=== PATIENT | female | born 1945 | race Caucasian/White ===

== ENCOUNTER → 2016-05-15 | Outpatient (CLI) | payer MEDICARE ==
--- NOTE | 2016-05-15 12:41 | KCIC ---
PQRS STATEMENT One or more of the following individualized dose reduction techniques were utilized for this study: 1.Automated exposure control 2.Adjustment of the mA and/or kV according to patient size 3.Use of iterative reconstruction technique CT maxillofacial Indication: Reason For Study Reason: CHRONIC SINUSITIS / Spl. Instructions: / History: Sinus drainage Technique: multiple contiguous axial images were obtained through the facial bones. Coronal and sagittal reformations were created. Findings:Soft tissues are within normal limits. No facial fractures are identified. There are postsurgical changes of a medial antrectomy on the right. There has also been resection of the middle and inferior turbinates on the right. Minimal mucoperiosteal thickening is noted in the right maxillary sinus. Frontal sinuses are aplastic. The left ostiomeatal unit is patent. Temporomandibular joints are intact. The globes and orbits are within normal limits. Parapharyngeal soft tissues are within normal limits. Impression: - Postsurgical changes of a right medial antrectomy and right turbinectomy. There is minimal mucoperiosteal thickening of the right maxillary sinus but no fluid levels are identified. Electronically signed by: Rick Soto (May 15, 2016 12:40:02)
== END | disposition home or self-care (01) ==
LOC: KCIC CT 11:57
PROVIDERS: ATTEND Otolaryngology
DX: J32.9 Chronic sinusitis, unspecified (principal)
CPT/HCPCS: 70486

== ENCOUNTER → 2017-02-20 | Outpatient (CLI) | payer BC ==
--- NOTE | 2017-02-20 12:41 | KCIC ---
Single view chest and left rib series 02/20/2017 CLINICAL INDICATION: Left mid lateral pain marked with a BB. Fall. COMPARISON: None. FINDINGS: Cardiac and mediastinal silhouettes are unremarkable. There is a calcified granuloma in the mid left lung. Bilateral axillary surgical clips are noted. No pleural effusion, pneumothorax or focal consolidation. There is an irregular sclerotic structure of the proximal left humerus. No evidence of acute displaced left rib fracture identified. IMPRESSION: 1. Small, irregular sclerotic lesion of the proximal left humerus, may represent a chondroid series lesion versus enostosis bone infarct. Dedicated left humerus radiographs are recommended for further evaluation. 2. No acute cardiopulmonary abnormality. 3. No evidence of acute displaced left rib fracture. Electronically signed by: Rodo Pool MD (02/20/2017 12:38 PM) [id number]
== END | disposition home or self-care (01) ==
LOC: KCIC 10:53
PROVIDERS: ATTEND Family Medicine
DX: R07.81 Pleurodynia (principal); R91.8 Other nonspecific abnormal finding of lung field; W10.9XXA Fall (on) (from) unspecified stairs and steps, initial encounter
CPT/HCPCS: 71101

== ENCOUNTER 2017-12-26 09:43 | Emergency (ER) | payer BC ==
[~2017-12-26] VITALS: Ht 170.2 cm; Wt 75.7 kg
[2017-12-26 10:05] VITALS: BP 167/76
[2017-12-26] MEDS ORDERED: LIDOCAINE WITH 8.4% SOD BICARB 3 ML DISP.SYRIN. INJ ONE (10:30)
[2017-12-26] MEDS ORDERED: LIDOCAINE 1% PF 2 ML VIAL. INJ ONE (10:30)
[2017-12-26] MEDS ORDERED: cefTRIAXone IM 1 GM VIAL IM ONE (10:30)
[2017-12-26] MEDS ORDERED: CLINDAMYCIN HCL 150 MG CAPSULE. PO ONE (10:45)
[2017-12-26] MEDS ORDERED: CLIN150C14 PO (11:20)
--- NOTE | 2017-12-26 11:20 | PHYS DOC ---
Past Medical History Past Medical History: Cancer, High Cholesterol, Hypertension, Other Additional Past Medical Histor: RT CHRONIC KNEE PAIN, BREAST CANCER Past Surgical History: , Hysterectomy, Other Additional Past Surgical Histo: TRAM FLAP, BILATERAL MASECTOMY, RECONSTRUCTION OF TRAM FLAP, Alcohol Use: Occasionally Additional Information: GLASS A WINE A DAY Drug Use: None Adult General Chief Complaint Chief Complaint: ABSCESS HPI HPI Patient is a 72 year old female with history of high cholesterol, hypertension , who presents with right index finger infection, she states she developed swelling to the finger a couple weeks ago, she states this morning she woke up and noted redness around the nail bed as well as redness streaking into her right upper arm. Patient denies any fever. Review of Systems Review of Systems Constitutional: Denies fever or chills [] Eyes: Denies change in visual acuity, redness, or eye pain [] HENT: Denies nasal congestion or sore throat [] Respiratory: Denies cough or shortness of breath [] Cardiovascular: No additional information not addressed in HPI [] GI: Denies abdominal pain, nausea, vomiting, bloody stools or diarrhea [] : Denies dysuria or hematuria [] Musculoskeletal: Denies back pain or joint pain [] Integument: Right index finger infection with streaking Neurologic: Denies headache, focal weakness or sensory changes [] All other systems were reviewed and found to be within normal limits, except as documented in this note. Current Medications Current Medications Current Medications Medications (Trade) Dose Ordered Sig/Erik Start Time Stop Time Status Last Admin Dose Admin Ceftriaxone Sodium (Rocephin Im) 1 gm 1X ONCE 12/26/17 10:30 12/26/17 10:31 UNV Clindamycin HCl (Cleocin) 450 mg 1X ONCE 12/26/17 10:45 12/26/17 10:46 DC 12/26/17 10:51 450 MG Lidocaine HCl (Xylocaine-Mpf 1% 2ml Vial) 2 ml 1X ONCE 12/26/17 10:30 12/26/17 10:31 Cancel Lidocaine/Sodium Bicarbonate (Buffered Lidocaine 1%) 3 ml 1X ONCE 12/26/17 10:30 12/26/17 10:38 DC 12/26/17 10:51 3 ML Allergies Allergies Allergies Coded Allergies Type Severity Reaction Last Updated Verified Cephalosporins Allergy Intermediate BLISTERS 12/26/17 Yes Penicillins Allergy Intermediate "HUGE HIVES" SWELLING 12/26/17 Yes adhesive tape Allergy Intermediate BLISTERS 12/26/17 Yes bacitracin Allergy Intermediate BLISTERS 12/26/17 Yes polymyxin B Allergy Intermediate BLISTERS 12/26/17 Yes codeine Adverse Reaction Intermediate PUKING 12/26/17 Yes Uncoded Allergies Type Severity Reaction Last Updated Verified CATGUT Allergy Intermediate REJECT 12/26/17 Physical Exam Physical Exam Constitutional: Well developed, well nourished, no acute distress, non-toxic appearance. [] HENT: Normocephalic, atraumatic, bilateral external ears normal, oropharynx moist, no oral exudates, nose normal. [] Eyes: PERRLA, EOMI, conjunctiva normal, no discharge. [] Neck: Normal range of motion, no tenderness, supple, no stridor. [] Cardiovascular:Heart rate regular rhythm, no murmur [] Lungs & Thorax: Bilateral breath sounds clear to auscultation [] Abdomen: Bowel sounds normal, soft, no tenderness, no masses, no pulsatile masses. [] Skin: Warm, dry, the nail bed of the right index finger with mild swelling and cellulitis, there is a streak from this area into the forearm worse on the biceps. Neurovascular exam. +2 right radial pulse. Cap refill less than 2 seconds the right index finger. Back: No tenderness, no CVA tenderness. [] Extremities: No tenderness, no cyanosis, no clubbing, ROM intact, no edema. [] Neurologic: Alert and oriented X 3, normal motor function, normal sensory function, no focal deficits noted. [] Psychologic: Affect normal, judgement normal, mood normal. [] Current Patient Data Vital Signs Vital Signs Date Time Temp Pulse Resp B/P (MAP) Pulse Ox O2 Delivery O2 Flow Rate FiO2 12/26/17 10:05 97.9 52 14 167/76 (106) 98 Room Air 97.9 EKG EKG [] Radiology/Procedures Radiology/Procedures Indication: Paronychia right index finger Procedure: The patient was positioned appropriately. Local anesthesia was 1% buffered lidocaine. An incision was then made over the apex of the lesion with an 11 blade and small amount of yellow bloody material was expressed. The drainage cavity was irrigated and covered with sterile gauze. The patients tetanus status updated as needed. The patient tolerated the procedure well. Complications: none.[] Course & Med Decision Making Course & Med Decision Making Pertinent Labs and Imaging studies reviewed. (See chart for details) Patient has paronychia of the right index finger with streaking into her right upper extremity. The paronychia was drained successfully in the emergency room by me. Tetanus is up-to-date. She was given clindamycin in the ED and discharged with the same. She is allergic to a lot of antibiotics. She was instructed to continue soaking the finger. Follow-up with her own PCP in 1-2 weeks. Instructed to return to the ED at any point symptoms worsen. Dragon Disclaimer Dragon Disclaimer This electronic medical record was generated, in whole or in part, using a voice recognition dictation system. Departure Departure Impression: Primary Impression: Paronychia of right index finger Additional Impression: Cellulitis of upper extremity Disposition: 01 HOME, SELF-CARE Condition: STABLE Referrals: Kenisha MANDUJANO MD (PCP) Follow up in 1-2 weeks Patient Instructions: Cellulitis, [id number], Paronychia, [id number] Additional Instructions: You were seen with paronychia/finger infection and cellulitis/the streaking/ redness. Please take the prescribed antibiotics until completed. Continue soaking the index finger. Follow-up with your own doctor in the next 7 days. Please come back to the emergency room at any point symptoms worsen. Scripts Clindamycin Hcl (CLINDAMYCIN HCL) 150 Mg Capsule 3 CAP PO TID, #90 CAP Prov: MINH TRIPP APRN 12/26/17 Problem Qualifiers Additional Impression: Cellulitis of upper extremity Laterality: right Qualified Codes: L03.113 - Cellulitis of right upper limb MINH TRIPP APRN Dec 26, 2017 11:20
[2017-12-27] MEDS ORDERED: GABA-586 PO ×2 (11:57)
[2017-12-27] MEDS ORDERED: EZET10TA18 PO (11:57)
[2017-12-27] MEDS ORDERED: METO-269 PO (11:57)
== END 2017-12-26 11:40 | disposition home or self-care (01) ==
LOC: ER 09:43
DX: L03.011 Cellulitis of right finger (principal); I10 Essential (primary) hypertension; E78.00 Pure hypercholesterolemia, unspecified; G89.29 Other chronic pain; Z88.0 Allergy status to penicillin; Z88.1 Allergy status to other antibiotic agents; Z88.8 Allergy status to other drugs, medicaments and biological substances; Z88.5 Allergy status to narcotic agent
CPT/HCPCS: 10060; 99283-25

== ENCOUNTER 2017-12-27 09:22 | Inpatient (IN) | payer BC ==
[~2017-12-27] VITALS: Ht 170.2 cm; Wt 74.4 kg
[~2017-12-27 09:22] MED LIST: CLIN150C14 PO
[2017-12-27] MEDS ORDERED: VANCOMYCIN PER PHARMACY MC PRN (10:00)
[2017-12-27] MEDS ORDERED: IV NORMAL SALINE 1000ML BAG 1,000 ML IV ONE ×2 (10:00→10:45)
[2017-12-27] MEDS ORDERED: VANCOMYCIN 1.75 GM in IV NORMAL SALINE 500ML BAG 500 ML IV ONE (10:15)
[2017-12-27 10:19] LABS: CALCIUM 9.2 mg/dL (8.5-10.1); CREATININE 0.7 mg/dL (0.6-1.0); GFR 82.5; POTASSIUM 4.3 mmol/L (3.5-5.1)
[2017-12-27] MEDS ORDERED: SULFAMETH/TRIMETH 20 ML in IV DEXTROSE 5% 500 ML IV ONE (10:30)
[2017-12-27 10:37] LABS: BASO # 0.1 x10^3/uL (0.0-0.2); BASO % 1 % (0-3); EOS # 0.4 x10^3/uL (0.0-0.7); EOS % 5 % (0-3); HEMATOCRIT 39.6 % (36.0-47.0); HEMOGLOBIN 13.3 g/dL (12.0-15.5); LYMPH # 2.6 x10^3/uL (1.0-4.8); LYMPH % 38 % (24-48); MEAN CORPUSCULAR HEMOGLOBIN 33 pg (25-35); MEAN CORPUSCULAR HGB CONC 34 g/dL (31-37); MEAN CORPUSCULAR VOLUME 98 fL (79-100); MONO # 0.5 x10^3/uL (0.0-1.1); MONO % 8 % (0-9); NEUT # 3.4 x10^3uL (1.8-7.7); NEUT % 48 % (31-73); PLATELET COUNT 283 x10^3/uL (140-400); RED BLOOD COUNT 4.05 x10^6/uL (3.50-5.40); RED CELL DISTRIBUTION WIDTH 13.9 % (11.5-14.5); WHITE BLOOD COUNT 6.9 x10^3/uL (4.0-11.0)
[2017-12-27] MEDS ORDERED: ACETAMINOPHEN 325 MG TABLET. PO PRN (10:45)
[2017-12-27] MEDS ORDERED: ONDANSETRON PF 4 MG/2 ML VIAL. IV PRN (10:45)
[2017-12-27 10:50] VITALS: BP 144/74
--- NOTE | 2017-12-27 11:11 | PHYS DOC ---
Past Medical History Past Medical History: Cancer, High Cholesterol, Hypertension, Other Additional Past Medical Histor: RT CHRONIC KNEE PAIN, BREAST CANCER Past Surgical History: , Hysterectomy, Other Additional Past Surgical Histo: TRAM FLAP, BILATERAL MASECTOMY, RECONSTRUCTION OF TRAM FLAP, Alcohol Use: Occasionally Drug Use: None Adult General Chief Complaint Chief Complaint: UPPER EXTREMITY PAIN HPI HPI Patient is a 72 year old female with history of high cholesterol, hypertension , who presents today complaining of worsening cellulitis to the right upper extremity. Patient was seen yesterday in the ED by me with paronychia infection to the right index finger which i drained. She presents today because the redness has gotten worse with streaking all the way to the right upper extremity. Patient was discharged yesterday with clindamycin which she started taking yesterday this morning her symptoms were worse. Patient denies any fever. Denies any nausea vomiting. PCP Dr. Mandujano Review of Systems Review of Systems Constitutional: Denies fever or chills [] Eyes: Denies change in visual acuity, redness, or eye pain [] HENT: Denies nasal congestion or sore throat [] Respiratory: Denies cough or shortness of breath [] Cardiovascular: No additional information not addressed in HPI [] GI: Denies abdominal pain, nausea, vomiting, bloody stools or diarrhea [] : Denies dysuria or hematuria [] Musculoskeletal: Denies back pain or joint pain [] Integument: Reports right index finger infection with cellulitis to the right upper extremity Neurologic: Denies headache, focal weakness or sensory changes [] All other systems were reviewed and found to be within normal limits, except as documented in this note. Current Medications Current Medications Current Medications Medications (Trade) Dose Ordered Sig/Erik Start Time Stop Time Status Last Admin Dose Admin Sodium Chloride 1,000 ml @ 1,000 mls/hr 1X ONCE 12/27/17 10:00 12/27/17 10:59 DC 12/27/17 10:18 1,000 MLS/HR Vancomycin HCl (Vanco Per Pharmacy) 1 each PRN DAILY PRN 12/27/17 10:00 Allergies Allergies Allergies Coded Allergies Type Severity Reaction Last Updated Verified Cephalosporins Allergy Intermediate BLISTERS 12/26/17 Yes Penicillins Allergy Intermediate "HUGE HIVES" SWELLING 12/26/17 Yes adhesive tape Allergy Intermediate BLISTERS 12/26/17 Yes bacitracin Allergy Intermediate BLISTERS 12/26/17 Yes polymyxin B Allergy Intermediate BLISTERS 12/26/17 Yes codeine Adverse Reaction Intermediate PUKING 12/26/17 Yes Uncoded Allergies Type Severity Reaction Last Updated Verified CATGUT Allergy Intermediate REJECT 12/26/17 Physical Exam Physical Exam Constitutional: Well developed, well nourished, no acute distress, non-toxic appearance. [] HENT: Normocephalic, atraumatic, bilateral external ears normal, oropharynx moist, no oral exudates, nose normal. [] Eyes: PERRLA, EOMI, conjunctiva normal, no discharge. [] Neck: Normal range of motion, no tenderness, supple, no stridor. [] Cardiovascular:Heart rate regular rhythm, no murmur [] Lungs & Thorax: Bilateral breath sounds clear to auscultation [] Abdomen: Bowel sounds normal, soft, no tenderness, no masses, no pulsatile masses. [] Skin: Right index finger nail bed with mild swelling and erythema/cellulitis around the nail bed. There is streaking from the right index finger all the way into the right upper extremity. There large area of cellulitis on the right biceps. Neurovascular exam is intact to the right upper extremity. Back: No tenderness, no CVA tenderness. [] Extremities: No tenderness, no cyanosis, no clubbing, ROM intact, no edema. [] Neurologic: Alert and oriented X 3, normal motor function, normal sensory function, no focal deficits noted. [] Psychologic: Affect normal, judgement normal, mood normal. [] Current Patient Data Vital Signs Vital Signs Date Time Temp Pulse Resp B/P (MAP) Pulse Ox O2 Delivery O2 Flow Rate FiO2 12/27/17 09:46 97.6 57 18 166/75 (105) 99 Room Air 97.6 Lab Values Laboratory Tests Test 12/27/17 09:55 Sodium Level 138 mmol/L (136-145) Potassium Level 4.3 mmol/L (3.5-5.1) Chloride Level 103 mmol/L (98-107) Carbon Dioxide Level 28 mmol/L (21-32) Anion Gap 7 (6-14) Blood Urea Nitrogen 17 mg/dL (7-20) Creatinine 0.7 mg/dL (0.6-1.0) Estimated GFR (Cockcroft-Gault) 82.5 Glucose Level 88 mg/dL (70-99) Calcium Level 9.2 mg/dL (8.5-10.1) C-Reactive Protein, Quantitative 3.0 mg/L (0-3.3) Laboratory Tests 12/27/17 09:55 EKG EKG [] Radiology/Procedures Radiology/Procedures [] Course & Med Decision Making Course & Med Decision Making Pertinent Labs and Imaging studies reviewed. (See chart for details) This is a 72-year-old female patient presenting to the ED today with a worsening paronychia infection with cellulitis. Patient was seen in the ED yesterday. I&D was performed paronychia. This morning her symptoms were worse. She was on clindamycin since yesterday. No improvement of symptoms. Her tetanus is up-to-date. Patient was started on Bactrim IV and vancomycin pharmacy to dose. She is allergic to other antibiotics including PCN and cephalosporins. [address] Mandujano who accepted patient for admission. I&D consult placed. Boone Disclaimer Boone Disclaimer This electronic medical record was generated, in whole or in part, using a voice recognition dictation system. Departure Departure Impression: Primary Impression: Cellulitis of upper extremity Additional Impression: Paronychia of right index finger Disposition: ADMITTED INPATIENT Condition: STABLE Referrals: Kenisha MANDUJANO MD (PCP) Problem Qualifiers Primary Impression: Cellulitis of upper extremity Laterality: right Qualified Codes: L03.113 - Cellulitis of right upper limb JOSEEMINH BURGESS Dec 27, 2017 11:11
[2017-12-27] MEDS ORDERED: HYDROcodone/APAP 5/325MG 1 TAB TABLET PO PRN (11:30)
--- NOTE | 2017-12-27 11:50 | PDOC ---
Infectious Disease Note Vital Sign Vital Signs Vital Signs Date Time Temp Pulse Resp B/P (MAP) Pulse Ox O2 Delivery O2 Flow Rate FiO2 12/27/17 09:46 97.6 57 18 166/75 (105) 99 Room Air 97.6 Labs Lab Laboratory Tests Test 12/27/17 09:55 12/27/17 10:25 Sodium Level 138 mmol/L (136-145) Potassium Level 4.3 mmol/L (3.5-5.1) Chloride Level 103 mmol/L (98-107) Carbon Dioxide Level 28 mmol/L (21-32) Anion Gap 7 (6-14) Blood Urea Nitrogen 17 mg/dL (7-20) Creatinine 0.7 mg/dL (0.6-1.0) Estimated GFR (Cockcroft-Gault) 82.5 Glucose Level 88 mg/dL (70-99) Calcium Level 9.2 mg/dL (8.5-10.1) C-Reactive Protein, Quantitative 3.0 mg/L (0-3.3) White Blood Count 6.9 x10^3/uL (4.0-11.0) Red Blood Count 4.05 x10^6/uL (3.50-5.40) Hemoglobin 13.3 g/dL (12.0-15.5) Hematocrit 39.6 % (36.0-47.0) Mean Corpuscular Volume 98 fL (79-100) Mean Corpuscular Hemoglobin 33 pg (25-35) Mean Corpuscular Hemoglobin Concent 34 g/dL (31-37) Red Cell Distribution Width 13.9 % (11.5-14.5) Platelet Count 283 x10^3/uL (140-400) Neutrophils (%) (Auto) 48 % (31-73) Lymphocytes (%) (Auto) 38 % (24-48) Monocytes (%) (Auto) 8 % (0-9) Eosinophils (%) (Auto) 5 % (0-3) Basophils (%) (Auto) 1 % (0-3) Neutrophils # (Auto) 3.4 x10^3uL (1.8-7.7) Lymphocytes # (Auto) 2.6 x10^3/uL (1.0-4.8) Monocytes # (Auto) 0.5 x10^3/uL (0.0-1.1) Eosinophils # (Auto) 0.4 x10^3/uL (0.0-0.7) Basophils # (Auto) 0.1 x10^3/uL (0.0-0.2) Lactic Acid Level 1.1 mmol/L (0.4-2.0) Objective Assessment Rt index finger paronychia Rt hand and forearm lymphangitic spread HTN Multiple med allergy Plan Plan of Care iv clindamycin check cultures DARCI BERRY MD Dec 27, 2017 11:49
[2017-12-27] MEDS ORDERED: METO-269 PO (11:57)
[2017-12-27] MEDS ORDERED: GABA-586 PO ×2 (11:57)
[2017-12-27] MEDS ORDERED: EZET10TA18 PO (11:57)
[2017-12-27] MEDS: GABAPENTIN 300 MG CAPSULE. PO SCH ×2 (12:31→21:25)
--- NOTE | 2017-12-27 12:49 | PDOC1 ---
History and Physical Date of Admission Date of Admission 12/27/17 Identification/Chief Complaint Chief Complaint red streak up arm Source Source: Patient History of Present Illness History of Present Illness She thinks she had a papercut of her finger that got infected and presented to ER and had it lanced and was started on po antibiotics and now she has a red streak up her arm. 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 Past Medical History Cardiovascular: HTN, Hyperlipidemia Pulmonary: Other (CINDY treated with uvuloplasty) GI: Other (colon polyps) Hepatobiliary: No pertinent hx Psych: No pertinent hx Rheumatologic: Other (Lyme Disease) Infectious disease: No pertinent hx ENT: No pertinent hx Renal/: No pertinent hx Endocrine: No pertinent hx Dermatology: No pertinent hx Past Surgical History Past Surgical History: , Mastectomy, Tonsillectomy, Other (breast implants) Family History Family History: Hypertension Social History Smoke: Quit (> 25 yrs ago) Current Problem List Problem List Problems Medical Problems: (1) Cellulitis of upper extremity Status: Acute (2) Paronychia of right index finger Status: Acute Current Medications Current Medications Current Medications Medications (Trade) Dose Ordered Sig/Erik Start Time Stop Time Status Last Admin Dose Admin Acetaminophen (Tylenol) 650 mg PRN Q4HRS PRN 12/27/17 10:45 12/28/17 10:44 Acetaminophen/ Hydrocodone Bitart (Lortab 5/325) 1 tab PRN Q6HRS PRN 12/27/17 11:30 12/27/17 11:46 1 TAB Clindamycin Phosphate 50 ml @ 100 mls/hr Q8HRS 12/27/17 13:00 EZETIMIBE (Zetia) 10 mg QHS 12/27/17 21:00 Gabapentin (Neurontin) 600 mg QHS 12/27/17 21:00 Metoprolol Succinate (Toprol Xl) 50 mg DAILY 12/27/17 13:00 Ondansetron HCl (Zofran) 4 mg PRN Q8HRS PRN 12/27/17 10:45 12/28/17 10:44 Sodium Chloride 1,000 ml @ 75 mls/hr 1X ONCE 12/27/17 10:45 12/28/17 00:04 12/27/17 11:08 75 MLS/HR Trimethoprim/ Sulfamethoxazole 20 ml/Dextrose 520 ml @ 346.667 mls/hr 1X ONCE 12/27/17 10:30 12/27/17 11:58 DC 12/27/17 10:59 346.667 MLS/HR Vancomycin HCl (Vanco Per Pharmacy) 1 each PRN DAILY PRN 12/27/17 10:00 12/27/17 11:51 DC Vancomycin HCl 1.75 gm/Sodium Chloride 500 ml @ 250 mls/hr 1X ONCE 12/27/17 10:15 12/27/17 11:58 DC Allergies Allergies Allergies Coded Allergies Type Severity Reaction Last Updated Verified Cephalosporins Allergy Intermediate BLISTERS 12/26/17 Yes Penicillins Allergy Intermediate "HUGE HIVES" SWELLING 12/26/17 Yes adhesive tape Allergy Intermediate BLISTERS 12/26/17 Yes bacitracin Allergy Intermediate BLISTERS 12/26/17 Yes polymyxin B Allergy Intermediate BLISTERS 12/26/17 Yes tetracycline Allergy Intermediate Itching 12/27/17 Yes codeine Adverse Reaction Intermediate PUKING 12/26/17 Yes Uncoded Allergies Type Severity Reaction Last Updated Verified CATGUT Allergy Intermediate REJECT 12/26/17 ROS Review of System CONSTITUTIONAL: No fever or chills EYES: No recent changes SKIN: No rash or itching CARDIOVASCULAR: No chest pain, syncope, palpitations, or edema RESPIRATORY: No SOB or cough GASTROINTESTINAL: No nausea, vomiting or abdominal pain NEUROLOGICAL: No headaches or weakness ENDOCRINE: No cold or heat intolerance GENITOURINARY: No urgency or frequency of urination MUSCULOSKELETAL: No back pain or joint pain LYMPHATICS: No enlarged lymph nodes PSYCHIATRIC: No anxiety or depression Physical Exam Physical Exam GEN.: No apparent distress. Alert and oriented. HEENT: Head is normocephalic, atraumatic NECK: Supple. LUNGS: Clear to auscultation. HEART: RRR, S1, S2 present. Peripheral pulses intact ABDOMEN: Soft, nontender. Positive bowel sounds. EXTREMITIES: Without any cyanosis, red lymphangitic streak up right inner arm from index finger with soft tissue swelling around cuticle. NEUROLOGIC: Normal speech, normal tone PSYCHIATRIC: Normal affect, normal mood. SKIN: No ulcerations Vitals Vitals Vital Signs Date Time Temp Pulse Resp B/P (MAP) Pulse Ox O2 Delivery O2 Flow Rate FiO2 12/27/17 11:46 Room Air 12/27/17 09:46 97.6 57 18 166/75 (105) 99 97.6 Labs Labs Laboratory Tests Test 12/27/17 09:55 12/27/17 10:25 Sodium Level 138 mmol/L (136-145) Potassium Level 4.3 mmol/L (3.5-5.1) Chloride Level 103 mmol/L (98-107) Carbon Dioxide Level 28 mmol/L (21-32) Anion Gap 7 (6-14) Blood Urea Nitrogen 17 mg/dL (7-20) Creatinine 0.7 mg/dL (0.6-1.0) Estimated GFR (Cockcroft-Gault) 82.5 Glucose Level 88 mg/dL (70-99) Calcium Level 9.2 mg/dL (8.5-10.1) C-Reactive Protein, Quantitative 3.0 mg/L (0-3.3) White Blood Count 6.9 x10^3/uL (4.0-11.0) Red Blood Count 4.05 x10^6/uL (3.50-5.40) Hemoglobin 13.3 g/dL (12.0-15.5) Hematocrit 39.6 % (36.0-47.0) Mean Corpuscular Volume 98 fL (79-100) Mean Corpuscular Hemoglobin 33 pg (25-35) Mean Corpuscular Hemoglobin Concent 34 g/dL (31-37) Red Cell Distribution Width 13.9 % (11.5-14.5) Platelet Count 283 x10^3/uL (140-400) Neutrophils (%) (Auto) 48 % (31-73) Lymphocytes (%) (Auto) 38 % (24-48) Monocytes (%) (Auto) 8 % (0-9) Eosinophils (%) (Auto) 5 % (0-3) Basophils (%) (Auto) 1 % (0-3) Neutrophils # (Auto) 3.4 x10^3uL (1.8-7.7) Lymphocytes # (Auto) 2.6 x10^3/uL (1.0-4.8) Monocytes # (Auto) 0.5 x10^3/uL (0.0-1.1) Eosinophils # (Auto) 0.4 x10^3/uL (0.0-0.7) Basophils # (Auto) 0.1 x10^3/uL (0.0-0.2) Lactic Acid Level 1.1 mmol/L (0.4-2.0) Laboratory Tests Test 12/27/17 09:55 12/27/17 10:25 Sodium Level 138 mmol/L (136-145) Potassium Level 4.3 mmol/L (3.5-5.1) Chloride Level 103 mmol/L (98-107) Carbon Dioxide Level 28 mmol/L (21-32) Anion Gap 7 (6-14) Blood Urea Nitrogen 17 mg/dL (7-20) Creatinine 0.7 mg/dL (0.6-1.0) Estimated GFR (Cockcroft-Gault) 82.5 Glucose Level 88 mg/dL (70-99) Calcium Level 9.2 mg/dL (8.5-10.1) C-Reactive Protein, Quantitative 3.0 mg/L (0-3.3) White Blood Count 6.9 x10^3/uL (4.0-11.0) Red Blood Count 4.05 x10^6/uL (3.50-5.40) Hemoglobin 13.3 g/dL (12.0-15.5) Hematocrit 39.6 % (36.0-47.0) Mean Corpuscular Volume 98 fL (79-100) Mean Corpuscular Hemoglobin 33 pg (25-35) Mean Corpuscular Hemoglobin Concent 34 g/dL (31-37) Red Cell Distribution Width 13.9 % (11.5-14.5) Platelet Count 283 x10^3/uL (140-400) Neutrophils (%) (Auto) 48 % (31-73) Lymphocytes (%) (Auto) 38 % (24-48) Monocytes (%) (Auto) 8 % (0-9) Eosinophils (%) (Auto) 5 % (0-3) Basophils (%) (Auto) 1 % (0-3) Neutrophils # (Auto) 3.4 x10^3uL (1.8-7.7) Lymphocytes # (Auto) 2.6 x10^3/uL (1.0-4.8) Monocytes # (Auto) 0.5 x10^3/uL (0.0-1.1) Eosinophils # (Auto) 0.4 x10^3/uL (0.0-0.7) Basophils # (Auto) 0.1 x10^3/uL (0.0-0.2) Lactic Acid Level 1.1 mmol/L (0.4-2.0) VTE Prophylaxis Ordered VTE Prophylaxis Devices: No VTE Pharmacological Prophylaxi: No Assessment/Plan Assessment/Plan Rt index finger paronychia - lanced yesterday in ER - no culture as no purulent material found, it was appropriately cleaned with betadine prior to lancing attempt and she soaked it in Epsom salt later last padmini after getting home Rt hand and forearm lymphangitic spread - admit for IV antibiotics and ID consult HTN - continue home meds HLP- continue home meds Kenisha MANDUJANO MD Dec 27, 2017 12:49
[2017-12-27] MEDS: CLINDAMYCIN 600MG PREMIX 50 ML IV SCH ×2 (13:00→21:25)
[2017-12-27] MEDS: METOPROLOL SUCC 24HR ER 50 MG TAB.ER.24H. PO SCH (13:01)
--- NOTE | 2017-12-27 17:14 | RAD ---
Right index finger, 3 views, 12/27/2017: HISTORY: Swelling, infection No fracture or destructive bony lesion is seen. There is minimal degenerative change at the DIP joint. Soft tissue swelling is evident distally. IMPRESSION: No acute bony abnormality is detected. Electronically signed by: José Miguel Pagan MD (12/27/2017 5:11 PM) [facility]
[2017-12-27 19:20] VITALS: BP 132/68
[2017-12-27] MEDS: LACTOBACILLUS RHAMNOSUS GG 1 CAPSULE. PO SCH (21:25)
[2017-12-27] MEDS: EZETIMIBE 10 MG TABLET. PO SCH (21:25)
[2017-12-27] MEDS ORDERED: SULFAMETH/TRIMETH 20 ML in IV DEXTROSE 5% 500 ML IV SCH (22:00)
[2017-12-27 23:03] VITALS: BP 142/79
[2017-12-28 03:29] VITALS: BP 130/70
[2017-12-28 04:35] LABS: BASO % 1 % (0-3); EOS # 0.4 x10^3/uL (0.0-0.7); EOS % 7 % (0-3); HEMATOCRIT 37.7 % (36.0-47.0); HEMOGLOBIN 12.9 g/dL (12.0-15.5); LYMPH # 2.5 x10^3/uL (1.0-4.8); LYMPH % 40 % (24-48); MEAN CORPUSCULAR HEMOGLOBIN 34 pg (25-35); MEAN CORPUSCULAR HGB CONC 34 g/dL (31-37); MEAN CORPUSCULAR VOLUME 98 fL (79-100); MONO # 0.6 x10^3/uL (0.0-1.1); MONO % 9 % (0-9); NEUT # 2.7 x10^3uL (1.8-7.7); NEUT % 44 % (31-73); PLATELET COUNT 285 x10^3/uL (140-400); RED BLOOD COUNT 3.85 x10^6/uL (3.50-5.40); RED CELL DISTRIBUTION WIDTH 13.9 % (11.5-14.5); WHITE BLOOD COUNT 6.2 x10^3/uL (4.0-11.0)
[2017-12-28 04:42] LABS: CALCIUM 8.5 mg/dL (8.5-10.1); CREATININE 0.8 mg/dL (0.6-1.0); GFR 70.7; POTASSIUM 4.3 mmol/L (3.5-5.1)
--- NOTE | 2017-12-28 05:51 | CONS ---
DATE OF CONSULTATION: 12/27/2017 REQUESTING PHYSICIAN: Dr. Wells. REASON FOR CONSULTATION: Right index finger paronychia with lymphangitic spread into the upper extremity. HISTORY OF PRESENT ILLNESS: This is a 72-year-old female who started having pain at the right index finger on the lateral side. This started about couple of days ago. The patient was seen in the ER. Lancing was done and put on Bactrim and she got worse. She came back. The patient had lancing done. She says, evidently only blood came out and no culture was taken. Now, the patient has started having redness, streaking from the hand into the forearm and into the upper arm. The patient denies any fever, does have slight nausea, but denies any vomiting. Denies any chest pain, shortness of breath, abdominal pain, urinary symptoms or bowel symptoms. PAST MEDICAL HISTORY: Positive for hypertension, hyperlipidemia. She has had breast cancer, bilateral mastectomy done and TRAM flap done. SOCIAL HISTORY: Negative for smoking. Occasional alcohol use. No drug use. ALLERGIES: SHE IS LISTED ALLERGIC TO CEPHALOSPORINS, PENICILLIN, AND POLYMYXIN. REVIEW OF SYSTEMS: As per HPI. All other systems reviewed are negative. PHYSICAL EXAMINATION: GENERAL: Alert, oriented female, not in distress. VITAL SIGNS: Stable, afebrile. HEENT: NAD. NECK: Supple. No JVP, no lymphadenopathy. LUNGS: Clear. HEART: S1, S2 regular. ABDOMEN: Benign. EXTREMITIES: No edema or cyanosis. SKIN: Unremarkable except the right index finger. The patient does have paronychia with tenderness at the nail into the sides of the nails. There is no pus pointing or there is no drainage right now, but clear cut lymphangitic spread into the hand, forearm, and upper arm. NEUROLOGIC: Intact. LABORATORY DATA: White count is normal. BUN and creatinine is normal. IMPRESSION: 1. Paronychia, right index finger. 2. Lymphangitic spread into the right hand, forearm and upper arm. 3. Multiple medication allergy. 4. Hypertension. 5. Hyperlipidemia. RECOMMENDATIONS: Would use IV clindamycin. This is almost always strep the way it started, the way it is spreading. We will discontinue vancomycin, discontinue Bactrim. Supportive care. We will monitor and hopefully soon will be able to go home. Thank you very much, Dr. Wells, for giving me the opportunity to participate in this patient's care. DARCI BERRY MD DR: SHELIA/stephan JOB#: [id number] / [id number]
[2017-12-28] MEDS: CLINDAMYCIN 600MG PREMIX 50 ML IV SCH ×3 (06:32→23:09)
[2017-12-28 07:00] VITALS: BP 117/65
[2017-12-28] MEDS: GABAPENTIN 300 MG CAPSULE. PO SCH ×2 (09:00→20:12)
[2017-12-28] MEDS: METOPROLOL SUCC 24HR ER 50 MG TAB.ER.24H. PO SCH (09:00)
[2017-12-28] MEDS: LACTOBACILLUS RHAMNOSUS GG 1 CAPSULE. PO SCH ×2 (09:00→20:11)
[2017-12-28 11:00] VITALS: BP 133/66
--- NOTE | 2017-12-28 11:29 | PDOC ---
Infectious Disease Note Subjective Subjective feeling better, ROS ROS no n/v/d/fever redness improving Vital Sign Vital Signs Vital Signs Date Time Temp Pulse Resp B/P (MAP) Pulse Ox O2 Delivery O2 Flow Rate FiO2 12/28/17 07:56 Room Air 12/28/17 07:00 97.5 62 16 117/65 (82) 99 97.5 Physical Exam PHYSICAL EXAM GENERAL: Alert, oriented female, not in distress. VITAL SIGNS: Stable, afebrile. HEENT: NAD. NECK: Supple. No JVP, no lymphadenopathy. LUNGS: Clear. HEART: S1, S2 regular. ABDOMEN: Benign. EXTREMITIES: No edema or cyanosis. SKIN: Unremarkable except the right index finger. The patient does have paronychia with tenderness at the nail into the sides of the nails. There is no pus pointing or there is no drainage right now, but clear cut lymphangitic spread into the hand, forearm, and upper arm.,, redness improving NEUROLOGIC: Intact. Labs Lab Laboratory Tests Test 12/28/17 03:15 White Blood Count 6.2 x10^3/uL (4.0-11.0) Red Blood Count 3.85 x10^6/uL (3.50-5.40) Hemoglobin 12.9 g/dL (12.0-15.5) Hematocrit 37.7 % (36.0-47.0) Mean Corpuscular Volume 98 fL (79-100) Mean Corpuscular Hemoglobin 34 pg (25-35) Mean Corpuscular Hemoglobin Concent 34 g/dL (31-37) Red Cell Distribution Width 13.9 % (11.5-14.5) Platelet Count 285 x10^3/uL (140-400) Neutrophils (%) (Auto) 44 % (31-73) Lymphocytes (%) (Auto) 40 % (24-48) Monocytes (%) (Auto) 9 % (0-9) Eosinophils (%) (Auto) 7 % (0-3) Basophils (%) (Auto) 1 % (0-3) Neutrophils # (Auto) 2.7 x10^3uL (1.8-7.7) Lymphocytes # (Auto) 2.5 x10^3/uL (1.0-4.8) Monocytes # (Auto) 0.6 x10^3/uL (0.0-1.1) Eosinophils # (Auto) 0.4 x10^3/uL (0.0-0.7) Basophils # (Auto) 0.0 x10^3/uL (0.0-0.2) Sodium Level 142 mmol/L (136-145) Potassium Level 4.3 mmol/L (3.5-5.1) Chloride Level 107 mmol/L (98-107) Carbon Dioxide Level 26 mmol/L (21-32) Anion Gap 9 (6-14) Blood Urea Nitrogen 14 mg/dL (7-20) Creatinine 0.8 mg/dL (0.6-1.0) Estimated GFR (Cockcroft-Gault) 70.7 Glucose Level 88 mg/dL (70-99) Calcium Level 8.5 mg/dL (8.5-10.1) Micro Microbiology 12/27/17 Blood Culture - Preliminary, Resulted NO GROWTH AFTER 1 DAY Objective Assessment Rt index finger paronychia Rt hand and forearm lymphangitic spread HTN Multiple med allergy Plan Plan of Care iv clindamycin check cultures DARCI BERRY MD Dec 28, 2017 11:29
[2017-12-28 15:00] VITALS: BP 128/72
--- NOTE | 2017-12-28 17:04 | PDOC ---
PROGRESS NOTES Subjective Lymphangitis of right arm fading but she has some tenderness with palpation , cultures pending, no new symptoms except for metallic taste in mouth Objective Afebrile BP: [] General: NAD Heart: RRR Lungs: CTAB Abd: soft, ND, NT Ext: redness fading from right inner arm, index finger cuticle area improved Vital Signs Vital Signs Date Time Temp Pulse Resp B/P (MAP) Pulse Ox O2 Delivery O2 Flow Rate FiO2 12/28/17 15:00 97.9 67 16 128/72 (90) 97 Room Air 97.9 I & O Intake and Output 12/28/17 07:00 Intake Total 1240 ml Balance 1240 ml Intake Oral 720 ml IV Total 520 ml # Voids 9 Assessment and Plan Problems Medical Problems: (1) Cellulitis of upper extremity Status: Acute (2) Paronychia of right index finger Status: Acute Rt index finger paronychia - lanced 12/26 in ER - no culture as no purulent material found, it was appropriately cleaned with Betadine prior to lancing attempt and she soaked it in Epsom salt later last padmini after getting home Rt hand and forearm lymphangitic spread - admitted for IV antibiotics and ID consult and are currently awaiting cultures but she has improved significantly HTN - stable, continue home meds HLP- stable, continue home meds Kenisha MANDUJANO MD Dec 28, 2017 17:04
[2017-12-28 19:00] VITALS: BP 115/68
[2017-12-28] MEDS: EZETIMIBE 10 MG TABLET. PO SCH (20:11)
[2017-12-28 23:00] VITALS: BP 109/59
[2017-12-29 03:00] VITALS: BP 111/67
[2017-12-29] MEDS: CLINDAMYCIN 600MG PREMIX 50 ML IV SCH ×2 (06:43→14:03)
[2017-12-29 07:00] VITALS: BP 136/59
[2017-12-29] MEDS: LACTOBACILLUS RHAMNOSUS GG 1 CAPSULE. PO SCH (08:53)
[2017-12-29] MEDS: GABAPENTIN 300 MG CAPSULE. PO SCH (08:53)
[2017-12-29] MEDS: METOPROLOL SUCC 24HR ER 50 MG TAB.ER.24H. PO SCH (09:00)
[2017-12-29 11:00] VITALS: BP 123/61
--- NOTE | 2017-12-29 11:09 | PDOC ---
PROGRESS NOTES Subjective Subjective Patient without complaint. Denies pain in R index finger. Feels she really needs to go home today as she has to work tomorrow. Objective Objective Vital Signs Date Time Temp Pulse Resp B/P (MAP) Pulse Ox O2 Delivery O2 Flow Rate FiO2 12/29/17 09:00 59 136/59 12/29/17 07:00 97.6 18 98 Room Air 97.6 Intake and Output 12/29/17 07:00 Intake Total 350 ml Balance 350 ml Intake Oral 250 ml IV Total 100 ml # Voids 7 Physical Exam Abdomen: Normal bowel sounds, Soft, No tenderness Heart: Regular rate Extremities: Other (moderate edema and resolving erythema R index finger proximal to nail.) General: Alert, Oriented X3, No acute distress Lungs: Clear to auscultation Assessment Assessment Problems Medical Problems: (1) Cellulitis of upper extremity Status: Acute (2) Paronychia of right index finger Status: Acute Plan Plan of Care 1. Paronychia with lymphangitic spread - much improved. Anticipate home today, await ID input as to po abx. Blood cultures negative to date and no wound cultures done. 2. HTN - controlled, continue home medication. Comment Review of Relevant I have reviewed the following items mariam (where applicable) has been applied. Labs Laboratory Tests Test 12/28/17 03:15 White Blood Count 6.2 x10^3/uL (4.0-11.0) Red Blood Count 3.85 x10^6/uL (3.50-5.40) Hemoglobin 12.9 g/dL (12.0-15.5) Hematocrit 37.7 % (36.0-47.0) Mean Corpuscular Volume 98 fL (79-100) Mean Corpuscular Hemoglobin 34 pg (25-35) Mean Corpuscular Hemoglobin Concent 34 g/dL (31-37) Red Cell Distribution Width 13.9 % (11.5-14.5) Platelet Count 285 x10^3/uL (140-400) Neutrophils (%) (Auto) 44 % (31-73) Lymphocytes (%) (Auto) 40 % (24-48) Monocytes (%) (Auto) 9 % (0-9) Eosinophils (%) (Auto) 7 % (0-3) Basophils (%) (Auto) 1 % (0-3) Neutrophils # (Auto) 2.7 x10^3uL (1.8-7.7) Lymphocytes # (Auto) 2.5 x10^3/uL (1.0-4.8) Monocytes # (Auto) 0.6 x10^3/uL (0.0-1.1) Eosinophils # (Auto) 0.4 x10^3/uL (0.0-0.7) Basophils # (Auto) 0.0 x10^3/uL (0.0-0.2) Sodium Level 142 mmol/L (136-145) Potassium Level 4.3 mmol/L (3.5-5.1) Chloride Level 107 mmol/L (98-107) Carbon Dioxide Level 26 mmol/L (21-32) Anion Gap 9 (6-14) Blood Urea Nitrogen 14 mg/dL (7-20) Creatinine 0.8 mg/dL (0.6-1.0) Estimated GFR (Cockcroft-Gault) 70.7 Glucose Level 88 mg/dL (70-99) Calcium Level 8.5 mg/dL (8.5-10.1) Microbiology 12/27/17 Blood Culture - Preliminary, Resulted NO GROWTH AFTER 2 DAYS Medications Current Medications Sodium Chloride 1,000 ml @ 1,000 mls/hr 1X ONCE IV Last administered on 12/27at 10:18; Start 12/27/17 at 10:00; Stop 12/27/17 at 10:59; Status DC Vancomycin HCl (Vanco Per Pharmacy) 1 each PRN DAILY PRN MC SEE COMMENTS; Start 12/27/17 at 10:00; Stop 12/27/17 at 11:51; Status DC Trimethoprim/ Sulfamethoxazole 20 ml/Dextrose 520 ml @ 346.667 mls/hr Q8HRS IV ; Start 12/27/17 at 22:00; Stop 12/27/17 at 22:00; Status DC Trimethoprim/ Sulfamethoxazole 20 ml/Dextrose 520 ml @ 346.667 mls/hr 1X ONCE IV Last administered on 12/27/17at 10:59; Start 12/27/17 at 10:30; Stop 12/27 at 11:58; Status DC Vancomycin HCl 1.75 gm/Sodium Chloride 500 ml @ 250 mls/hr 1X ONCE IV ; Start 12/27/17 at 10:15; Stop 12/27/17 at 11:58; Status DC Ondansetron HCl (Zofran) 4 mg PRN Q8HRS PRN IV NAUSEA/VOMITING; Start at 10:45; Stop 12/28/17 at 10:45; Status DC Acetaminophen (Tylenol) 650 mg PRN Q4HRS PRN PO FEVER; Start 12/27/17 at 10:45 ; Stop 12/28/17 at 10:45; Status DC Sodium Chloride 1,000 ml @ 75 mls/hr 1X ONCE IV Last administered on at 11:08; Start 12/27/17 at 10:45; Stop 12/28/17 at 00:04; Status DC Acetaminophen/ Hydrocodone Bitart (Lortab 5/325) 1 tab PRN Q6HRS PRN PO PAIN Last administered on 12/27/17at 11:46; Start 12/27/17 at 11:30 Clindamycin Phosphate 50 ml @ 100 mls/hr Q8HRS IV Last administered on at 06:43; Start 12/27/17 at 13:00 EZETIMIBE (Zetia) 10 mg QHS PO Last administered on 12/28/17at 20:11; Start at 21:00 Gabapentin (Neurontin) 300 mg DAILY PO Last administered on 12/29/17at 08:53; Start 12/27/17 at 12:30 Gabapentin (Neurontin) 600 mg QHS PO Last administered on 12/28/17at 20:12; Start 12/27/17 at 21:00 Metoprolol Succinate (Toprol Xl) 50 mg DAILY PO Last administered on at 09:00; Start 12/27/17 at 13:00 Lactobacillus Rhamnosus (Culturelle) 1 cap BID PO Last administered on at 08:53; Start 12/27/17 at 21:00 Active Scripts Active Clindamycin Hcl 150 Mg Capsule 3 Cap PO TID Reported Toprol Xl (Metoprolol Succinate) 50 Mg Tab.er.24h 50 Mg PO DAILY Zetia (Ezetimibe) 10 Mg Tablet 1 Tab PO QHS Gabapentin 300 Mg Capsule 600 Mg PO QHS Gabapentin 300 Mg Capsule 300 Mg PO DAILY Vitals/I & O Vital Sign - Last 24 Hours 12/28/17 12/28/17 12/28/17 12/28/17 15:00 19:00 20:00 23:00 Temp 97.9 98.4 97.6 97.9 98.4 97.6 Pulse 67 67 66 Resp 16 18 18 B/P (MAP) 128/72 (90) 115/68 (84) 109/59 (76) Pulse Ox 97 95 96 O2 Delivery Room Air Room Air Room Air Room Air 12/29/17 12/29/17 12/29/17 03:00 07:00 09:00 Temp 97.4 97.6 97.4 97.6 Pulse 59 59 59 Resp 18 18 B/P (MAP) 111/67 (82) 136/59 (84) 136/59 Pulse Ox 98 98 O2 Delivery Room Air Room Air Intake and Output 12/28/17 12/28/17 12/29/17 15:00 23:00 07:00 Intake Total 350 ml Balance 350 ml ISABELLA LYNN MD Dec 29, 2017 11:09
--- NOTE | 2017-12-29 15:06 | PDOC ---
Infectious Disease Note Subjective Subjective Comfortable, denies pain Wants to go home Says swelling and redness much improved Denies F/C/S/N/V/D ROS ROS per HPI otherwise neg Vital Sign Vital Signs Vital Signs Date Time Temp Pulse Resp B/P (MAP) Pulse Ox O2 Delivery O2 Flow Rate FiO2 12/29/17 11:00 97.8 73 18 123/61 (81) 100 Room Air 97.8 Physical Exam PHYSICAL EXAM GENERAL: Propped up in bed, smiling, joking HEENT: Oral cavity clear NECK: Supple. LUNGS: Clear. HEART: S1, S2 regular. ABDOMEN: Soft, NT EXTREMITIES: No edema or cyanosis. SKIN: Right index finger w/o redness or drainage. Lymphangitic spread - improved , not very noticeable any more NEUROLOGIC: Alert and oriented x 3. Labs Micro Microbiology 12/27/17 Blood Culture - Preliminary, Resulted NO GROWTH AFTER 2 DAYS Objective Assessment Right index finger paronychia - improved Right hand and forearm lymphangitic spread - resolving HTN Multiple med allergy Plan Plan of Care switch IV clindamycin to po Rx written Patient instructed not to take previous Rx provided in ER 12/26 f/u PCP as directed D/w family D/w RN D/w KYLE Elizalde APRN Dec 29, 2017 15:06
--- NOTE | 2017-12-30 14:52 | DS ---
DATE OF DISCHARGE: 12/29/2017 CHIEF COMPLAINT: Red streak up arm. HISTORY OF PRESENT ILLNESS: The patient is a 72-year-old female who was initially seen in the Emergency Room on the day prior to this admission for concern about an infection in her finger. 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 A small incision and drainage was performed in the Emergency Room and she was discharged home on clindamycin. The patient states that she did start taking the medication, but by the next day, the area of redness and pain had worsened and she noticed a red streak running all the way up her arm, almost to her shoulder, so she returned to the Emergency Room. IV antibiotics were started and she was admitted for further care. HOSPITAL COURSE: The patient was seen in consultation by Infectious Disease. She remained afebrile during her hospital stay. Blood cultures were without growth. There was no wound culture done as there was no fluid expressed with the initial I and D in the Emergency Room. The patient was treated with IV clindamycin. She had a prompt improvement in the lymphangitic spread that was seen at admission and by the day of discharge, it had completely resolved. The area of erythema at the fingernail was also much improved and the patient stated that there was no longer any pain in it. The patient felt much better and strongly desired to be discharged as she had to work the next day. The patient's blood pressure was controlled with her usual medication. She was discharged home with a new prescription for oral clindamycin per Infectious Disease recommendations. FINAL DIAGNOSES: 1. Right index finger paronychia with lymphangitic spread. 2. Hypertension. DISCHARGE MEDICATIONS: Clindamycin per prescription, Zetia 10 mg daily, gabapentin 300 mg in the a.m. and 600 mg at bedtime, and Toprol-XL 50 mg daily. FOLLOWUP: Followup is with Dr. Wells as needed. The patient was advised to keep her hand clean and dry as much as possible. ISABELLA LYNN MD DR: HARLAN/stephan JOB#: [id number] / [id number] KENDYD
== END 2017-12-29 15:10 | disposition home or self-care (01) | DRG 603 ==
LOC: ER 09:22 → 4 NORTH 10:03
PROVIDERS: ADMIT Family Medicine; ATTEND Family Medicine
DX: L03.011 Cellulitis of right finger (principal); L03.113 Cellulitis of right upper limb; I10 Essential (primary) hypertension; E78.00 Pure hypercholesterolemia, unspecified; E78.5 Hyperlipidemia, unspecified; G47.33 Obstructive sleep apnea (adult) (pediatric); G89.29 Other chronic pain; Z90.13 Acquired absence of bilateral breasts and nipples; Z98.82 Breast implant status; Z82.49 Family history of ischemic heart disease and other diseases of the circulatory system; Z85.3 Personal history of malignant neoplasm of breast; Z86.010 Personal history of colon polyps; Z90.710 Acquired absence of both cervix and uterus
CPT/HCPCS: 36415; 73140; 80048; 83605; 85025; 85651; 86140; 87040; J3490; J7030; 99285-25

== ENCOUNTER → 2018-07-09 | Outpatient (CLI) | payer OTHER ==
[~2018-07-09] MED LIST changes: +ACYC400T PO; +ALEN70TA6 PO; +EZET10TA18 PO; +GABA300C18 PO; +HYDR-2761 PO; +IBUP200C9 PO; +METO-269 PO
--- NOTE | 2018-07-09 10:35 | KCIC ---
EXAMINATION: Magnetic resonance imaging (MRI) of the cervical spine without contrast 07/09/2018 10:15 AM HISTORY: Cervical stenosis with chronic neck pain and left radiculopathy. TECHNIQUE: Multiplanar multi-weighted MRI of the cervical spine was performed without intravenous contrast using the standard cervical spine protocol. Contrast information: None administered COMPARISON: Cervical spine radiograph June 28, 2018 FINDINGS: There is minimal anterolisthesis of C4 on C5. Vertebral body heights are maintained. There is a superior endplate Schmorl's node at C6 without significant edema. There is disc desiccation at all levels of the cervical spine. There is mild disc height loss at C2-C3, C5-C6 and C6-C7. Mild anterior marginal osteophytosis is identified at C6-C7. Craniocervical junction is intact. Vertebral artery flow voids are maintained. Atlantoaxial articulation is intact. There is no prevertebral soft tissue swelling. No paraspinal soft tissue abnormality. C2-C3: There is a posterior disc osteophyte complex asymmetric to the left. There is mild right and moderate left facet arthropathy. Moderate left neuroforaminal stenosis. Mild to moderate spinal canal stenosis with minimal indentation of the left hemicord. No cord signal alteration. C3-C4: There is mild disc bulge. There is mild right and moderate left facet arthropathy. Mild uncovertebral joint disease. Mild bilateral neuroforaminal stenosis. No significant spinal canal stenosis. C4-C5: There is minimal uncovering of the disc secondary to anterolisthesis. Moderate left and mild right facet arthropathy. Mild uncovertebral joint disease. Moderate left neuroforaminal stenosis. No significant spinal canal stenosis. C5-C6: There is mild disc bulge. There is mild to moderate facet arthropathy. There is mild uncovertebral joint disease. Moderate left and mild right neuroforaminal stenosis. No significant spinal canal stenosis. C6-C7: There is a posterior disc osteophyte complex. Mild facet arthropathy. No uncovertebral joint disease. No neuroforaminal or spinal canal stenosis. C7-T1: Disc is normal in configuration. No neuroforaminal or spinal canal stenosis. IMPRESSION: Mild to moderate degenerative changes of the cervical spine are present, as described in detail above. Findings are most significant at C2-C3 with mild to moderate spinal canal stenosis and moderate left neuroforaminal stenosis. No cord signal alteration is visualized. Electronically signed by: Edith Iraheta MD (07/09/2018 10:32 AM) [facility] [id number]
== END | disposition home or self-care (01) ==
LOC: KCIC MRI 09:19
PROVIDERS: ATTEND Family Medicine
DX: M48.02 Spinal stenosis, cervical region (principal); M50.222 Other cervical disc displacement at C5-C6 level; M43.12 Spondylolisthesis, cervical region; M25.78 Osteophyte, vertebrae; M12.88 Other specific arthropathies, not elsewhere classified, other specified site
CPT/HCPCS: 72141

== ENCOUNTER → 2018-07-26 | Outpatient (CLI) | payer OTHER ==
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
== END | disposition home or self-care (01) ==
LOC: PNCL 08:28
PROVIDERS: ATTEND Anesthesiology
DX: M54.12 Radiculopathy, cervical region (principal); M19.90 Unspecified osteoarthritis, unspecified site; H91.90 Unspecified hearing loss, unspecified ear; I10 Essential (primary) hypertension; E78.5 Hyperlipidemia, unspecified; K21.9 Gastro-esophageal reflux disease without esophagitis; Z85.3 Personal history of malignant neoplasm of breast; Z90.13 Acquired absence of bilateral breasts and nipples; Z90.710 Acquired absence of both cervix and uterus; Z98.890 Other specified postprocedural states; Z98.51 Tubal ligation status; Z88.1 Allergy status to other antibiotic agents; Z88.5 Allergy status to narcotic agent; Z88.0 Allergy status to penicillin; Z88.8 Allergy status to other drugs, medicaments and biological substances
CPT/HCPCS: G0463

== ENCOUNTER → 2018-08-20 | Outpatient (CLI) | payer OTHER ==
[~2018-08-20] MED LIST changes: +IOHEXOL 180 MG/ML 10 ML VIAL. ONE; +methylPREDNISolone ACETATE 40 MG/ML VIAL. ONE; +methylPREDNISolone ACETATE 80 MG/ML VIAL. ONE
--- NOTE | 2018-08-20 21:06 | PAIN ---
DATE OF SERVICE: 08/20/2018 DIAGNOSES: Cervical radiculopathy with cervical spinal stenosis and cervical degenerative disk disease. HISTORY OF PRESENT ILLNESS: The patient is a 73-year-old female who returns for followup status post evaluation and preauthorization for cervical epidural steroid injection. The patient reports still significant pain in neck and left upper extremity greater than right as it was previously. The patient reports no new motor or sensory deficits, no new changes, but still significant pain in the base of the neck, shoulder, in the left arm, upper extremity, mostly in the anterior bicep and forearm on the left side with some numbness and tingling. 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 The patient reports her pain is a 9 on a scale of 10 at its worst over the past week, 8 on average, 7 at its least, and is an 8 today. The patient reports no new motor or sensory deficits, no new changes, but significant pain as noted. PHYSICAL EXAMINATION: VITAL SIGNS: The patient's blood pressure 131/71, pulse 65, respirations are 18, temperature 97.5 degrees Fahrenheit, height is 5 feet 7 inches, weight is 164 pounds. GENERAL: The patient is awake, alert, oriented, appropriate, very pleasant demeanor. HEENT: Shows normocephalic, atraumatic. Extraocular movements are intact and symmetrical. Oral cavity: Mucous membranes are moist and pink. Dentition is intact. NECK: Shows anterior throat supple without palpable lymphadenopathy noted. Swallow reflex is symmetrical. CHEST: Shows normal on inspection. Breath sounds are clear to auscultation bilaterally. HEART: Shows S1, S2 clear. ABDOMEN: Soft, nontender, nondistended. BACK: Shows spine grossly in the midline. Cervical paraspinous muscle shows symmetrical on inspection with normal cervical lordotic curvature. With palpation shows some moderate tenderness diffusely in the middle and inferior aspect of the cervical paraspinous musculature diffusely and into the superior medial trapezius bilaterally as well, but only diffusely without radiation or trigger point. The patient has good rotational motion of cervical spine both laterally greater than 45 degrees, closer to 90 degrees right and left without significant pain reported and full extension and full forward flexion without significant pain as well. EXTREMITIES: The patient's upper extremities show deep tendon reflexes 2+ in the biceps, triceps tendons. Motor exam is approximately 4 on a scale of 5 on the left and 5/5 on the right. Peripheral pulses are 2+ radial bilaterally without edema. Options were discussed with the patient. The patient's old chart was reviewed as was her current medication regimen updated. Current review of systems is updated today as well. We will proceed with a cervical epidural steroid injection today with fluoroscopic guidance. Risks were again discussed including, but not limited to bleeding, infection, possibility of epidural hematoma and subsequent neurological compromise, dural puncture, headaches, spinal cord and/or nerve damage, side effects of steroid medication and poor results regarding pain control. The patient understands and wished to proceed. The patient will return to the clinic in approximately 2 weeks for followup, was counseled on return appointment, activity level and side effects to be aware of. DIAGNOSES: Cervical radiculopathy with cervical degenerative disk disease and cervical spinal stenosis. PROCEDURE: Cervical epidural steroid injection, translaminar approach at the C6-C7 level using C-arm fluoroscopic guidance under sterile prep and drape using local anesthetic. MEDICATION INJECTED: A total of 120 mg Depo-Medrol plus 5 mL of preservative-free normal saline and 2 mL of contrast. CONDITION ON DISCHARGE: Stable. The patient tolerated the procedure well, had no complications. ISHA MORIN MD DR: RAYRAY/stephan JOB#: [id number] / [id number]
== END ==
LOC: PNCL 13:04
PROVIDERS: ATTEND Anesthesiology
DX: M50.123 Cervical disc disorder at C6-C7 level with radiculopathy (principal); M48.02 Spinal stenosis, cervical region
CPT/HCPCS: 62321; J1030; J1040; Q9965

== ENCOUNTER → 2018-09-03 | Outpatient (CLI) | payer OTHER ==
[~2018-09-03] MED LIST changes: -IOHEXOL 180 MG/ML 10 ML VIAL. ONE; -methylPREDNISolone ACETATE 40 MG/ML VIAL. ONE; -methylPREDNISolone ACETATE 80 MG/ML VIAL. ONE
--- NOTE | 2018-09-03 14:25 | PAIN ---
DATE OF SERVICE: 09/03/2018 PROGRESS NOTE FOR PAIN CLINIC DIAGNOSES: Cervical radiculopathy with cervical spinal stenosis and cervical degenerative disk disease. HISTORY OF PRESENT ILLNESS: The patient is a 73-year-old female who returns for followup status post cervical epidural steroid injection x 1. The patient reports about 70% improvement initially, now about 50% improvement but still working, still doing better. The patient reports pain in the neck and left upper extremity much improved. She has been increasing her activity with greater ease and comfort, raising her arm higher levels without much significant pain and performing working activities, household activities with greater ease and comfort, sleeping well at night, generally does not awaken her from sleep. The patient reports she is still staying very active the pain is still there but is much improved. The patient reports it is 8 on a scale of 10 at its worst over the past week, 5 on average, 4 at its least and is a 4 today. The patient reports it is dull and tight, shooting in the back of the neck and left shoulder and into the upper extremity, posterior triceps into the anterior forearm, into the thumb and first finger on the left side. The patient reports it is a burning and cramping at times in the base of the neck and shoulder, radiating into the arm in a radicular fashion as noted. The patient reports no new motor or sensory deficits and no new bowel or bladder incontinence or other complaints. PHYSICAL EXAMINATION: VITAL SIGNS: The patient's blood pressure 135/86, pulse 66, respirations 16 and temperature 98.6 Fahrenheit. Weight is 166 pounds. GENERAL: The patient is awake, alert, oriented, appropriate and very pleasant demeanor. HEENT: Head shows normocephalic and atraumatic. Extraocular movements are intact and symmetrical. Oral cavity shows mucous membranes moist and pink. Dentition is intact. NECK: Shows anterior throat supple without palpable lymphadenopathy noted. Swallow reflex is symmetrical. CHEST: Shows normal on inspection. Breath sounds are clear to auscultation bilaterally. HEART: Shows S1 and S2 clear. No murmurs auscultated. ABDOMEN: Soft, nontender and nondistended. No palpable organomegaly is noted. No rebound or guarding demonstrated. BACK: Shows spine grossly in the midline, normal-appearing cervical lordotic curvature and thoracic kyphotic curvature. Cervical paraspinous muscle shows symmetrical on inspection and palpation shows some moderate tenderness diffusely bilaterally but only diffusely without significant radiation. EXTREMITIES: The patient's upper extremities show deep tendon reflexes at 2+ in the biceps and triceps tendons. Motor exam is approximately 4 on a scale of 5 but symmetrical and equal bilaterally. The patient's shoulder shrug is strong and intact without loss of strength on resistance, some minor pain reported at the base and negative on the left side but only minor with resistance on the left side but no loss of strength. IMPRESSION: This is a 73-year-old female with still continued cervical radiculopathy on the left at C5-C6 dermatomal distribution as previously improved after first injection by about 70% initially, now about 50% overall but with significant improvement, still residual C5-C6 dermatological radiation in a radicular pattern on the left side. No significant pain on the right side. The patient will continue with stretching and strengthening exercises. We will preauthorize the patient for a second cervical epidural steroid injection. She did very well with the first but still with residual C5-C6 dermatomal distribution radiculopathy. We will plan on a translaminar approach of C5-C6 epidural steroid injection on her return. ISHA MORIN MD DR: RAYRAY/stephan JOB#: [id number] / [id number]
== END | disposition home or self-care (01) ==
LOC: PNCL 11:33
PROVIDERS: ATTEND Anesthesiology
DX: M50.10 Cervical disc disorder with radiculopathy, unspecified cervical region (principal); M48.02 Spinal stenosis, cervical region
CPT/HCPCS: G0463

== ENCOUNTER → 2018-09-27 | Outpatient (CLI) | payer BC, OTHER ==
[~2018-09-27] MED LIST changes: +IOHEXOL 180 MG/ML 10 ML VIAL. ONE; +methylPREDNISolone ACETATE 40 MG/ML VIAL. ONE; +methylPREDNISolone ACETATE 80 MG/ML VIAL. ONE
--- NOTE | 2018-09-28 04:19 | PAIN ---
DATE OF SERVICE: 09/27/2018 DIAGNOSES: Cervical radiculopathy with cervical spinal stenosis and cervical degenerative disk disease. HISTORY OF PRESENT ILLNESS: The patient is a 73-year-old female who returns for followup status post cervical epidural steroid injection x 1. The patient did very well with about 70% improvement after this and we had preauthorized her for a second injection and today she would like to proceed with that. The patient reports still pain in the base of the neck with left upper extremity and shoulder as it was previously. She rated it as a 9 on a scale of 10 at its worst over the past week, 8 on average, 5 at its least, and is a 5 today. The patient reports it is sharp, burning, stabbing, radiating to left upper extremity as previous. The patient reports no new motor or sensory deficits. Better with resting or lying down, does not awaken her from sleep at night. 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 The patient reports no new changes. No new deficits. PHYSICAL EXAMINATION: VITAL SIGNS: The patient's blood pressure 148/78, pulse 65, respirations 18, temperature 97.9 degrees Fahrenheit. Height is 5 feet 7 inches, weighs 167 pounds. GENERAL: The patient is awake, alert, oriented, appropriate, very pleasant demeanor. HEENT: Shows normocephalic, atraumatic. Extraocular muscles are intact and symmetrical. Oral cavity: Mucous membranes moist and pink. Dentition is intact. NECK: Shows anterior throat supple without palpable lymphadenopathy noted. Swallow reflex symmetrical. CHEST: Shows normal on inspection. Breath sounds clear to auscultation bilaterally. HEART: Shows S1, S2 clear. No murmurs auscultated. ABDOMEN: Soft, nontender, nondistended. No palpable organomegaly is noted. No rebound or guarding demonstrated. BACK: Shows spine grossly in the midline, normal-appearing cervical lordotic curvature and thoracic kyphotic curvature. Cervical paraspinous muscle shows symmetrical on inspection, on palpation some moderate tenderness diffusely but without specific radiation. The patient shows good rotational motion of the cervical spine both laterally as well as extension and flexion without significant difficulty. EXTREMITIES: The patient's upper extremities show deep tendon reflexes at 2+ in the biceps and triceps tendons. 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 Peripheral pulses are 2+ radial distribution. No peripheral edema is noted bilaterally. Options were discussed with the patient. The patient's old chart was reviewed as was her current medication regimen updated. Current review of systems was updated today as well. We will proceed with a second cervical epidural steroid injection today with fluoroscopic guidance. Risks were again discussed including, but not limited to bleeding, infection, possibility of epidural hematoma and subsequent neurological compromise, dural puncture, headaches, spinal cord and/or nerve damage, side effects of steroid medication and poor results regarding pain control. The patient understands and wished to proceed. The patient will return to the clinic in approximately 2 weeks for followup, was counseled as to return appointment, activity level and side effects to be aware of. DIAGNOSES: Cervical radiculopathy with cervical spinal stenosis and cervical degenerative disk disease. PROCEDURE: Cervical epidural steroid injection, translaminar approach at C6-C7 level using C-arm fluoroscopic guidance under sterile prep and using local anesthetic. MEDICATION INJECTED: A total of 120 mg of Depo-Medrol plus 5 mL of preservative-free normal saline and 2 mL of Isovue for contrast. CONDITION AT DISCHARGE: Stable. The patient tolerated the procedure well, had no complications. ISHA MORIN MD DR: RAYRAY/stephan JOB#: [id number] / [id number]
== END ==
LOC: PNCL 11:01
PROVIDERS: ATTEND Anesthesiology
DX: M50.123 Cervical disc disorder at C6-C7 level with radiculopathy (principal); M48.02 Spinal stenosis, cervical region
CPT/HCPCS: 62321; J1030; J1040; Q9965

== ENCOUNTER → 2018-10-11 | Outpatient (CLI) | payer BC, OTHER ==
[~2018-10-11] MED LIST changes: -IOHEXOL 180 MG/ML 10 ML VIAL. ONE; -methylPREDNISolone ACETATE 40 MG/ML VIAL. ONE; -methylPREDNISolone ACETATE 80 MG/ML VIAL. ONE
--- NOTE | 2018-10-12 02:45 | PAIN ---
DATE OF SERVICE: 10/11/2018 PROGRESS NOTE FOR PAIN CLINIC DIAGNOSES: Cervical radiculopathy with cervical spinal stenosis and cervical degenerative disk disease. HISTORY OF PRESENT ILLNESS: The patient is a 73-year-old female who returns for followup status post cervical epidural steroid injection x 2. The patient reports about 60% improvement after her last injection, approximately 75% for the first few days, but then after about 2 weeks, it dropped to about 50% improvement overall. The patient reports still significant improvement and she has been increasing her activity with greater ease and comfort with the left arm and shoulder. Still has some pain in the base of the neck and shoulder radiating to the arm in a radicular fashion on the left side, mostly in the lateral and posterior aspect of the triceps, also in the biceps and the forearm with some tingling. The patient reports the pain in the shoulder is sharp and shooting, cramping and stabbing in the posterior shoulder blade as well, especially when she is looking over her left shoulder when she is backing up her vehicle. The patient reports no new motor or sensory deficits, much better with sitting, lying down and relaxing, does not awaken her from sleep at night. Reports the pain is a 9 on a scale of 10 at its worst in the past week, 7 on average, 5 at its least and is a 5 today. PHYSICAL EXAMINATION: VITAL SIGNS: The patient's blood pressure is 152/76, pulse 65, respirations 18, temperature 97.9 degrees Fahrenheit, height is 5 feet 7 inches, weight is 167 pounds. GENERAL: The patient is awake, alert, oriented, appropriate, very pleasant demeanor. HEENT: Shows normocephalic, atraumatic. Extraocular movements are intact and symmetrical. Oral cavity: Mucous membranes moist and pink. Dentition is intact. NECK: Shows anterior throat supple without palpable lymphadenopathy noted. Swallow reflex is symmetrical. CHEST: Shows normal on inspection. Breath sounds clear to auscultation bilaterally. HEART: Shows S1, S2 clear. No murmurs auscultated. ABDOMEN: Soft, nontender, nondistended. BACK: Shows spine grossly in the midline. Cervical paraspinous muscle shows symmetrical on inspection, on palpation shows some moderate tenderness diffusely, but only diffusely in the inferior aspect of the cervical paraspinous musculature, more on the left than the right and in the posterior end of the superior medial trapezius on the left as well. The patient has good rotational motion of cervical spine with some moderate tenderness with left lateral rotation past 45 degrees and extension. EXTREMITIES: The patient's upper extremities show deep tendon reflexes 2+ in the biceps and triceps tendons. 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 Peripheral pulses are 2+ radial distribution. No peripheral edema is noted bilaterally. Options were discussed with the patient. The patient's old chart was reviewed as was her current medication regimen updated. Current review of systems was updated today as well. We will preauthorize the patient for a third cervical epidural steroid injection. She is doing quite well after the second injection with pain returning now in a radicular fashion in the left upper extremity at C6-C7 dermatomal distribution. We will plan for a C6-C7 level, translaminar injection on her return. The patient will continue to do stretching and strengthening exercises with her neck and shoulders in the meantime and activity as tolerated. We will follow up as scheduled for third cervical epidural steroid injection at that time. ISHA MORIN MD DR: RAYRAY/stephan JOB#: [id number] / [id number]
== END | disposition home or self-care (01) ==
LOC: PNCL 11:26
PROVIDERS: ATTEND Anesthesiology
DX: M50.10 Cervical disc disorder with radiculopathy, unspecified cervical region (principal); M48.02 Spinal stenosis, cervical region
CPT/HCPCS: G0463

== ENCOUNTER → 2018-11-12 | Outpatient (CLI) | payer BC, OTHER ==
[~2018-11-12] MED LIST changes: -EZET10TA18 PO; +EZET10TA20 PO; +IOHEXOL 180 MG/ML 10 ML VIAL. ONE; +methylPREDNISolone ACETATE 40 MG/ML VIAL. ONE; +methylPREDNISolone ACETATE 80 MG/ML VIAL. ONE
--- NOTE | 2018-11-12 23:25 | PAIN ---
DATE OF SERVICE: 11/12/2018 PROGRESS NOTE FOR PAIN CLINIC DIAGNOSES: Cervical radiculopathy with cervical spinal stenosis and cervical degenerative disk disease. HISTORY OF PRESENT ILLNESS: The patient is a 73-year-old female, who returns for followup status post cervical epidural steroid injection x 2. The patient reports about 60% improvement overall with still pain in the patient's neck and right upper extremity as well as the left shoulder. The patient reports no new motor or sensory deficits, no new changes. The patient reports the pain is an 8 on a scale of 10 at its worst over the past week, 7 on average, 6 at its least and is a 7 today. 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 The patient reports no new changes. PHYSICAL EXAMINATION: VITAL SIGNS: The patient's blood pressure 116/72, pulse is 66, respirations 18, temperature 98.1 degrees Fahrenheit, height is 5 feet 7 inches, weight is 171 pounds. GENERAL: The patient is awake, alert, oriented, appropriate, very pleasant demeanor. HEENT: Shows normocephalic, atraumatic. Extraocular movements are intact and symmetrical. Oral cavity: Mucous membranes moist and pink. Dentition is intact. NECK: Shows anterior throat supple without palpable lymphadenopathy noted. Swallow reflex symmetrical. CHEST: Shows normal on inspection. Breath sounds are clear to auscultation bilaterally. HEART: Shows S1, S2 clear. No murmurs auscultated. ABDOMEN: Soft, nontender, nondistended. No palpable organomegaly is noted. No rebound or guarding demonstrated. BACK: Shows spine grossly in the midline. Normal-appearing thoracic kyphosis and lumbar lordotic curvature. Lumbar paraspinous muscle shows symmetrical on inspection as does cervical paraspinous musculature with palpation. Cervical paraspinous muscles are symmetrical, but tender with palpation bilaterally, mostly in the middle and inferior aspect of the cervical paraspinous muscles, but without radiation. EXTREMITIES: Upper extremities show deep tendon reflexes 2+ in the biceps and triceps tendons. Motor exam is approximately 4 on a scale of 5 on the left, 5/5 on the right with biological plant operator strength, bicep and tricep flexion. Peripheral pulses are 2+. No peripheral edema is noted. Options were discussed with the patient. The patient's old chart was reviewed as well as her current medication regimen updated. Current review of systems updated today as well. We will proceed with a cervical epidural steroid injection today with fluoroscopic guidance. Risks were again discussed including but not limited to bleeding, infection, possibility of epidural hematoma and subsequent neurological compromise, dural puncture, headaches, spinal cord and/or nerve damage, side effects of steroid medication and poor results regarding pain control. The patient understands and wished to proceed. The patient will return to clinic in approximately 2 weeks for followup. She is counseled on return appointment, activity level and side effects to be aware of. DIAGNOSES: Cervical radiculopathy with cervical spinal stenosis and cervical degenerative disk disease with cervical paraspinous. PROCEDURE: Cervical epidural steroid injection, translaminar approach C6-C7 level using C-arm fluoroscopic guidance under sterile prep and drape using local anesthetic. MEDICATION INJECTED: A total of 120 mg Depo-Medrol plus 5 mL of preservative-free normal saline and 2 mL of contrast. CONDITION AT DISCHARGE: Stable. The patient tolerated procedure well. Had no complications. ISHA MORIN MD DR: RAYRAY/stephan JOB#: [id number] / [id number]
== END ==
LOC: PNCL 10:09
PROVIDERS: ATTEND Anesthesiology
DX: M50.123 Cervical disc disorder at C6-C7 level with radiculopathy (principal); M48.02 Spinal stenosis, cervical region
CPT/HCPCS: 62321; J1030; J1040; Q9965

== ENCOUNTER 2018-12-23 07:21 | Emergency (ER) | payer BC, OTHER ==
[~2018-12-23] VITALS: Ht 172.7 cm; Wt 74.8 kg
[~2018-12-23 07:21] MED LIST changes: -IOHEXOL 180 MG/ML 10 ML VIAL. ONE; -methylPREDNISolone ACETATE 40 MG/ML VIAL. ONE; -methylPREDNISolone ACETATE 80 MG/ML VIAL. ONE
[2018-12-23 07:37] VITALS: BP 119/65
--- NOTE | 2018-12-23 07:54 | PHYS DOC ---
Past Medical History Past Medical History: Cancer, High Cholesterol, Hypertension, Other Additional Past Medical Histor: RT CHRONIC KNEE PAIN, BREAST CANCER Past Surgical History: , Hysterectomy, Other Additional Past Surgical Histo: TRAM FLAP, BILATERAL MASECTOMY, RECONSTRUCTION OF TRAM FLAP, Alcohol Use: Occasionally Drug Use: None Adult General Chief Complaint Chief Complaint: COUGH HPI HPI 73-year-old female presents to the emergency department with complaints of cough, sore throat, headache, nausea, diarrhea, dysuria. Patient states symptoms started on Sunday. 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 She denies any fever. Denies abdominal pain. Nothing makes her symptoms worse, nothing makes her symptoms better. Review of Systems Review of Systems Constitutional: chills Eyes: Denies change in visual acuity, redness, or eye pain [] HENT: nasal congestion, sore throat Respiratory: cough, productive Cardiovascular: No additional information not addressed in HPI [] GI: Denies abdominal pain, + nausea, no vomiting, bloody stools or diarrhea [] : Denies dysuria or hematuria [] Musculoskeletal: Denies back pain or joint pain [] Integument: Denies rash or skin lesions [] Neurologic: + headache, no focal weakness or sensory changes [] All other systems were reviewed and found to be within normal limits, except as documented in this note. Allergies Allergies Allergies Coded Allergies Type Severity Reaction Last Updated Verified Cephalosporins Allergy Intermediate BLISTERS 12/23/18 Yes Penicillins Allergy Intermediate "HUGE HIVES" SWELLING 12/23/18 Yes adhesive tape Allergy Intermediate BLISTERS 12/23/18 Yes bacitracin Allergy Intermediate BLISTERS 12/23/18 Yes polymyxin B Allergy Intermediate BLISTERS 12/23/18 Yes tetracycline Allergy Intermediate Itching 12/23/18 Yes codeine Adverse Reaction Intermediate PUKING 12/23/18 Yes Uncoded Allergies Type Severity Reaction Last Updated Verified CATGUT Allergy Intermediate REJECT 12/26/17 Physical Exam Physical Exam Constitutional: Well developed, well nourished, no acute distress, non-toxic appearance. [] HENT: Normocephalic, atraumatic, bilateral external ears normal, oropharynx moist, no oral exudates, nose normal. [] Eyes: PERRLA, EOMI, conjunctiva normal, no discharge. [] Cardiovascular:Heart rate regular rhythm, no murmur [] Lungs & Thorax: Bilateral breath sounds clear to auscultation [] Abdomen: Bowel sounds normal, soft, no tenderness, no masses, no pulsatile masses. [] Skin: Warm, dry, no erythema, no rash. [] Extremities: No tenderness, no edema. [] Neurologic: Alert and oriented X 3, no focal deficits noted. [] Psychologic: Affect normal, judgement normal, mood normal. [] Current Patient Data Vital Signs Vital Signs Date Time Temp Pulse Resp B/P (MAP) Pulse Ox O2 Delivery O2 Flow Rate FiO2 12/23/18 07:37 97.8 72 22 119/65 (83) 97 Room Air 97.8 Lab Values Laboratory Tests Test 12/23/18 08:09 Urine Collection Type Unknown Urine Color Yellow Urine Clarity Cloudy Urine pH 6.0 Urine Specific [place] 1.010 Urine Protein Negative mg/dL (NEG-TRACE) Urine Glucose (UA) Negative mg/dL (NEG) Urine Ketones (Stick) Trace mg/dL (NEG) Urine Blood Small (NEG) Urine Nitrite Negative (NEG) Urine Bilirubin Negative (NEG) Urine Urobilinogen Dipstick 1.0 mg/dL (0.2 mg/dL) Urine Leukocyte Esterase Large (NEG) Urine RBC 3-5 /HPF (0-2) Urine WBC >40 /HPF (0-4) Urine Squamous Epithelial Cells Occ /LPF Urine Bacteria Moderate /HPF (0-FEW) EKG EKG [] Radiology/Procedures Radiology/Procedures [facility] [address] [place] [address] IMAGING REPORT Signed PATIENT: AL NIETO LACCOUNT: [id number] : 1945 LOCATION: ER AGE: 73 SEX: F EXAM STATUS: REG ER ORD. PHYSICIAN: PRESTON TIERNEY MD REASON: cough/sob PROCEDURE: CHEST PA & LATERAL EXAM: CHEST 2 VIEWS. HISTORY: Cough, shortness of breath. COMPARISON: 02/20/2017. FINDINGS: Frontal and lateral views of the chest are obtained. . Hyperinflation is consistent with chronic obstructive pulmonary disease. There are no confluent infiltrates. There is a calcified granuloma on the left. There is no pneumothorax or pleural effusion. The heart is not enlarged. There are atherosclerotic calcifications of the aorta. A sclerotic focus in the left humeral head is unchanged chronically and likely represents a benign chondroid lesion such as an enchondroma. IMPRESSION: 1. Chronic obstructive pulmonary disease. No confluent infiltrates. Electronically signed by: Melissa Gray MD (12/23/2018 8:40 AM) [facility] DICTATED and SIGNED BY: JOSÉ MIGUEL GRAY MD DATE: 12/23/18 0840 [] Course & Med Decision Making Course & Med Decision Making Pertinent Labs and Imaging studies reviewed. (See chart for details) []73-year-old female presents to the emergency department with complaints of cough, sore throat, headache, nausea, diarrhea, dysuria. Patient states symptoms started on Sunday. 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 She denies any fever. Denies abdominal pain. Nothing makes her symptoms worse, nothing makes her symptoms better. Labs/Imaging reviewed No evidence of acute consolidation appreciated on exam Plan abx for UTI and continued symptomatic treatment of URI Dragon Disclaimer Dragon Disclaimer This electronic medical record was generated, in whole or in part, using a voice recognition dictation system. Departure Departure Impression: Primary Impression: Cough Additional Impression: UTI (urinary tract infection) Condition: STABLE Referrals: Kenisha MANDUJANO MD (PCP) Patient Instructions: Upper Respiratory Infection, Adult, [id number], Urinary Tract Infection, Child Additional Instructions: Recommend follow up with PCP 3 - 5 days Return to the ER with worsening symptoms, intractable pain, fever, altered mental status Tylenol/Motrin as needed for pain Take antibiotics as prescribed Symptomatic treatment - use of mucinex over the counter, OTC cough suppressant Scripts Ciprofloxacin Hcl (CIPRO) 250 Mg Tablet 2 TAB PO BID for infection for 7 Days, #28 TAB Prov: PRESTON TIERNEY MD 12/23/18 Problem Qualifiers Additional Impression: UTI (urinary tract infection) Urinary tract infection type: site unspecified Hematuria presence: with hematuria Qualified Codes: N39.0 - Urinary tract infection, site not specified; R31.9 - Hematuria, unspecified PRESTON TIERNEY MD Dec 23, 2018 07:54
[2018-12-23 08:18] LABS: BILIRUBIN,URINE NEGATIVE (NEG); CLARITY,URINE CLOUDY; COLOR,URINE YELLOW; NITRITE,URINE NEGATIVE (NEG); PROTEIN,URINE NEGATIVE (NEG-TRACE)
[2018-12-23 08:35] LABS: SQUAMOUS EPITHELIAL CELL,UR OCC /LPF; WBC,URINE >40 /HPF (0-4)
[2018-12-23 08:36] LABS: BACTERIA,URINE MODERATE /HPF (0-FEW)
--- NOTE | 2018-12-23 08:44 | RAD ---
EXAM: CHEST 2 VIEWS. HISTORY: Cough, shortness of breath. COMPARISON: 02/20/2017. FINDINGS: Frontal and lateral views of the chest are obtained. . Hyperinflation is consistent with chronic obstructive pulmonary disease. There are no confluent infiltrates. There is a calcified granuloma on the left. There is no pneumothorax or pleural effusion. The heart is not enlarged. There are atherosclerotic calcifications of the aorta. A sclerotic focus in the left humeral head is unchanged chronically and likely represents a benign chondroid lesion such as an enchondroma. IMPRESSION: 1. Chronic obstructive pulmonary disease. No confluent infiltrates. Electronically signed by: Melissa Gray MD (12/23/2018 8:40 AM) [facility]
[2018-12-23] MEDS ORDERED: CIPR250T30 PO (08:58)
== END 2018-12-23 09:12 | disposition home or self-care (01) ==
LOC: ER 07:21
DX: N39.0 Urinary tract infection, site not specified (principal); R31.9 Hematuria, unspecified; E78.00 Pure hypercholesterolemia, unspecified; I10 Essential (primary) hypertension; G89.29 Other chronic pain; Z90.710 Acquired absence of both cervix and uterus; Z88.0 Allergy status to penicillin; Z88.1 Allergy status to other antibiotic agents; Z88.5 Allergy status to narcotic agent; Z88.8 Allergy status to other drugs, medicaments and biological substances
CPT/HCPCS: 71046; 81001; 87086; 87186; 99285-25

== ENCOUNTER → 2019-04-25 | Outpatient (CLI) | payer MEDICARE ==
[~2019-04-25] MED LIST changes: +CIPR250T30 PO
--- NOTE | 2019-04-25 15:15 | KCIC ---
MR of the left knee HISTORY: Left knee pain, severe, for 3 months after an injury. TECHNIQUE: Routine multiplanar sequences are obtained. FINDINGS: Posterior horn signal within the medial meniscus, with subtle inferior surface violation on a single coronal slice. This raises the question of a possible tear but if so it is small. Mild signal within the lateral meniscus, without definite tear. Anterior and posterior cruciate ligaments are intact. Medial collateral ligament intact. Iliotibial band unremarkable. Fibular collateral ligament, biceps femoris tendon and popliteus tendon are intact. Extensor mechanism is intact. Small joint effusion. Trace Matute's cyst. Severe patellofemoral joint chondral malacia with small subchondral cysts. Moderate medial compartment chondromalacia. Mild lateral compartment chondromalacia. No evidence of acute fracture. No aggressive bone destruction. IMPRESSION: 1. Possible tear of the posterior horn the medial meniscus, given that it only surfaces on a single slice. If a tear, it is very small. 2. 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 Electronically signed by: Bear Morales MD (04/25/2019 3:12 PM) [facility]
== END | disposition home or self-care (01) ==
LOC: KCIC MRI 10:27
PROVIDERS: ATTEND Physician Assistant
DX: M17.12 Unilateral primary osteoarthritis, left knee (principal); M25.462 Effusion, left knee; M94.262 Chondromalacia, left knee
CPT/HCPCS: 73721

== ENCOUNTER → 2020-05-05 | Outpatient (CLI) | payer MEDICARE ==
[~2020-05-05] MED LIST changes: -ALEN70TA6 PO; +ALEN70TA71 PO; -CLIN150C14 PO; +CLIN150C15 PO
--- NOTE | 2020-05-05 15:47 | KCIC ---
EXAMINATION: MRI LEFT SHOULDER WITHOUT IV CONTRAST CLINICAL HISTORY: Chronic left shoulder pain following fall over one year ago. Sclerotic focus in lef t humeral head noted on recent radiographs, present since at least 2011 TECHNIQUE: Multiplanar multisequential images obtained through the shoulder without intravenous contr ast. COMPARISON: Left shoulder radiographs 12/13/2020, chest radiographs 11/19/2011 FINDINGS: TENDONS: - Supraspinatus: Moderate tendinosis without tear. - Infraspinatus: Mild to moderate tendinosis without tear. - Subscapularis: Small low-grade partial thickness articular sided tear in the superior fibers. - Teres Minor: Within normal limits. - Biceps Tendon: The long head biceps tendon is intact and appropriately located. MUSCLES: Muscle bulk and signal intensity are within normal limits. LABRUM: Circumferential labral degeneration without discrete tear. GLENOHUMERAL JOINT: - Joint Fluid: No joint effusion or synovitis. - Cartilage: No full-thickness chondral defect visualized. ACROMIOCLAVICULAR JOINT: Mild degenerative changes. BONES/MARROW: Irregularly marginated focus of heterogeneous T1 and T2 signal in the lateral humeral h ead, nonspecific. Cystic changes in the greater and lesser tuberosities, supraglenoid tubercle, and c oracoid, nonspecific but may be related to chronic reactive changes. OTHER: No other significant abnormality identified. IMPRESSION: Small low-grade partial thickness subscapularis tendon tear with otherwise mild to moderate rotator c uff tendinosis. Heterogeneous signal abnormality in the humeral head as described, nonspecific but given relative sta bility since 2011 this is most likely benign and could represent an atypical appearing old bone infar ct. If clinically concerned for a more ominous process, radiographic imaging surveillance could be co nsidered. Electronically signed by: Winston Baker DO (05/05/2020 3:44 PM) [id number]
== END ==
LOC: KCIC MRI 13:40
PROVIDERS: ATTEND Orthopaedic Surgery
DX: M19.012 Primary osteoarthritis, left shoulder (principal); M75.102 Unspecified rotator cuff tear or rupture of left shoulder, not specified as traumatic
CPT/HCPCS: 73221

== ENCOUNTER → 2020-09-17 | Outpatient (CLI) | payer MEDICARE ==
[~2020-09-17] MED LIST changes: +ACYC-12 PO; -ACYC400T PO; -CLIN150C15 PO; +CLIN150C16 PO
--- NOTE | 2020-09-17 11:12 | KCIC ---
EXAM: Cervical spine MRI without contrast. HISTORY: Pain. TECHNIQUE: Multiplanar, multisequence magnetic resonance imaging of the cervical spine was performed without contrast. COMPARISON: None. FINDINGS: There is mild cervical kyphosis. There is 2 mm anterolisthesis of C3 on C4 and 4 mm anterol isthesis of C4 on C5 and 2 mm anterolisthesis of C7 on T1. There is degenerative endplate remodeling primarily at C5-C6 and C6-C7. There is endplate Schmorl's node formation at these levels. There is mu ltilevel facet and uncovertebral arthropathy. There is no fracture or suspicious osseous lesion. Ther e is deformation of the spinal cord at multiple levels due to central canal stenosis. No spinal cord edema or myelomalacia seen. There is an incidental posterior fossa arachnoid granulation. At C2-C3, there is a left posterior lateral predominant disc bulge and endplate osteophytosis. There is severe left facet arthropathy. There is [id number]-fw-[id number] left foraminal stenosis. There is mild ce ntral canal stenosis measuring 9.2 mm in anteroposterior dimension. At C3-C4, there is a disc bulge and endplate remodeling. There is mild right and severe left facet ar thropathy. There is uncovertebral arthropathy. There is moderate left greater than right foraminal st enosis. There is mild central canal stenosis measuring 8.8 mm in anterior posterior dimension. At C4-C5, there is a disc bulge and endplate remodeling. There is moderate right and severe left face t arthropathy. There is uncovertebral arthropathy. There is mild left foraminal stenosis. At C5-C6, there is a disc bulge and endplate osteophytosis. There is mild right and moderate left fac et arthropathy. There is uncovertebral arthropathy. There is moderate bilateral foraminal stenosis. At C6-C7, there is a disc bulge and endplate osteophytosis. There is uncovertebral arthropathy. There is no stenosis. IMPRESSION: 1. Multilevel degenerative change involving the cervical spine, described in detail above. This resul ts in mild to moderate left foraminal and mild central canal stenosis at C2-C3, moderate left greater than right foraminal and mild central canal stenosis at C3-C4, mild left foraminal stenosis at C4-C5 , and moderate bilateral foraminal stenosis at C5-C6. 2. Slight deformation of the cervical spinal cord at multiple levels due to stenosis. There is no spi nal cord edema or myelomalacia. Electronically signed by: Debbie Madrid MD (09/17/2020 11:10 AM) [id number]
== END ==
LOC: KCIC MRI 09:47
PROVIDERS: ATTEND Orthopaedic Surgery
DX: M47.812 Spondylosis without myelopathy or radiculopathy, cervical region (principal); M48.02 Spinal stenosis, cervical region; M50.21 Other cervical disc displacement, high cervical region; M43.13 Spondylolisthesis, cervicothoracic region; M40.292 Other kyphosis, cervical region
CPT/HCPCS: 72141

== ENCOUNTER 2020-11-19 08:54 | Outpatient (CLI) | payer MEDICARE ==
[~2020-11-19 08:54] MED LIST changes: +IOHEXOL 300 MG/ML 50 ML VIAL. IT ONE; +LIDOCAINE 1% Multi-Dose 20 ML VIAL. INJ ONE
[2020-11-19 10:33] VITALS: BP 168/79
--- NOTE | 2020-11-19 10:51 | RAD ---
EXAM: Fluoroscopic guided lumbar puncture for CT myelography; cervical spine CT myelogram. HISTORY: Neck pain and cervical radiculopathy. TECHNIQUE: The risks of the procedure were discussed with the patient and written and verbal consent was obtained. Stomach was performed. The patient was placed in a prone position on the fluoroscopy ta ble and a site overlying L3-L4 was selected for needle entry. The skin overlying this region was ster ilely prepped, draped and infiltrated with 1 percent lidocaine. A 22-gauge needle was advanced into t he central canal. No CSF was obtained. Therefore, the L4-L5 level selected for needle entry. Using th e same technique, a 22-gauge needle was advanced into the thecal sac. 12 cc of Omnipaque 300 intrathe burton contrast was then injected into the thecal sac. The needle was removed and sterile bandages were placed at the needle entry sites. The contrast column was advanced to the cervical level. Prone cross table, bilateral oblique and frontal fluoroscopic images were obtained. The patient was then transfer red to the CT suite for the post injection CT portion of the exam. 7 fluoroscopic images were obtaine d for a total fluoroscopy time of 1.6 minutes. The patient tolerated the procedure without difficulty and was discharged in stable condition. *One or more of the following individualized dose reduction techniques were utilized for this examina tion: 1. Automated exposure control. 2. Adjustment of the mA and/or kV according to patient size. 3. Use of iterative reconstruction technique. COMPARISON: Cervical spine MRI performed 09/17/2020. FINDINGS: The images obtained during the intrathecal injection of contrast demonstrate mild S-shaped lumbar scoliosis and multilevel degenerative change throughout the lumbar spine, including endplate o steophytosis and disc space narrowing predominantly at the mid and lower lumbar levels. There is face t arthropathy predominantly at the lumbosacral junction. These findings are not formally assessed on this exam. The myelogram portion of the exam demonstrates cervical dextrocurvature centered at C3-4, likely due to thoracic scoliosis. There is also cervical kyphosis centered at C5. There is 2 mm anterolisthesis of C3 on C4 and 3 mm anterolisthesis of C4 on C5. There is multilevel endplate remodeling, predominan tly at C5-C6 and C6-C7. There is disc space narrowing and Schmorl's node formation at these levels. T here is chronic mild decreased vertebral body height at C6. There is multilevel facet arthropathy, de scribed in detail below. There is an incidental arachnoid granulation within the occipital bone to left of midline. There is c alcified atherosclerotic plaque involving the carotid bifurcations. There is biapical emphysema with pleural proximal scarring. There is a benign bone island within the left aspect of C1. No suspicious osseous lesion is seen. The posterior arch of C1 is congenitally nonfused. At C2-C3, there is a broad-based left paracentral to lateral recess disc protrusion and osteophyte co mplex superimposed on left lateral predominant endplate remodeling. There is moderate left facet arth ropathy. There is left uncovertebral arthropathy. There is moderate left foraminal stenosis. There is slight deformation of the left ventral aspect of the spinal cord and deviation of the left ventral n erve ramus. There is mild central canal stenosis measuring 8.2 mm in anterior posterior dimension. At C3-C4, there is endplate remodeling. There is severe left facet arthropathy. There is bilateral un covertebral arthropathy. There is mild bilateral foraminal stenosis. At C4-C5, there is endplate remodeling. There is mild right and severe left facet arthropathy. There is no stenosis. At C5-C6, there is endplate remodeling. There is mild right and moderate to severe left facet arthrop athy. There is bilateral uncovertebral arthropathy. There is moderate to severe bilateral foraminal s tenosis. At C6-C7, there is endplate remodeling. There is right uncovertebral arthropathy. There is moderate r ight foraminal stenosis. IMPRESSION: 1. Multilevel degenerative change involving the cervical spine, described in detail above. This is as sociated with moderate left foraminal stenosis and mild central canal stenosis at C2-C3, mild bilater al foraminal stenosis at C3-C4, moderate to severe bilateral foraminal stenosis at C5-C6 and moderate right foraminal stenosis at C6-C7. 2. Cervical dextrocurvature due to thoracic scoliosis and degenerative cervical kyphosis and multilev el listhesis, described above. 3. Degenerative change involving the lumbar spine, not formally assessed on this exam. 4. Incidental pulmonary emphysema with biapical pleural parenchymal scarring. Electronically signed by: Debbie Madrid MD (11/19/2020 10:49 AM) [id number]
--- NOTE | 2020-11-19 11:00 | NUR ---
Discharge Note: AL NIETO LRAD Discharge instructions and discharge home medications reviewed with Patient and and a copy given. All questions have been answered and understanding verbalized. The following instructions and handouts were given: Mylogram Discontinued lines and drains: No lines to dc. Patient discharged to home with via personal vehicle.
== END 2020-11-19 11:00 | disposition home or self-care (01) ==
LOC: RAD 08:54
PROVIDERS: ATTEND Neurological Surgery
DX: M47.22 Other spondylosis with radiculopathy, cervical region (principal); M48.02 Spinal stenosis, cervical region; J43.9 Emphysema, unspecified; I10 Essential (primary) hypertension; E78.00 Pure hypercholesterolemia, unspecified; G47.30 Sleep apnea, unspecified; K21.9 Gastro-esophageal reflux disease without esophagitis; Z85.3 Personal history of malignant neoplasm of breast; Z87.891 Personal history of nicotine dependence; Z79.899 Other long term (current) drug therapy; Z90.710 Acquired absence of both cervix and uterus; Z98.890 Other specified postprocedural states; Z88.0 Allergy status to penicillin; Z88.1 Allergy status to other antibiotic agents; Z88.5 Allergy status to narcotic agent; Z88.8 Allergy status to other drugs, medicaments and biological substances
CPT/HCPCS: 62302; 72125; J3490; Q9967

== ENCOUNTER 2021-03-31 21:51 | Inpatient (IN) | payer MEDICARE ==
[~2021-03-31] VITALS: Ht 172.7 cm; Wt 81.7 kg
[~2021-03-31 21:51] MED LIST changes: -IOHEXOL 300 MG/ML 50 ML VIAL. IT ONE; -LIDOCAINE 1% Multi-Dose 20 ML VIAL. INJ ONE
[2021-03-31 23:16] LABS: BASO # 0.1 x10^3/uL (0.0-0.2); BASO % 1 % (0-3); EOS # 0.2 x10^3/uL (0.0-0.7); EOS % 2 % (0-3); HEMATOCRIT 41.9 % (36.0-47.0); LYMPH # 2.1 x10^3/uL (1.0-4.8); LYMPH % 17 % (24-48); MEAN CORPUSCULAR HEMOGLOBIN 32 pg (25-35); MEAN CORPUSCULAR HGB CONC 33 g/dL (31-37); MEAN CORPUSCULAR VOLUME 97 fL (79-100); MONO # 0.6 x10^3/uL (0.0-1.1); MONO % 5 % (0-9); NEUT # 9.5 x10^3/uL (1.8-7.7); NEUT % 76 % (31-73); PLATELET COUNT 303 x10^3/uL (140-400); RED BLOOD COUNT 4.32 x10^6/uL (3.50-5.40); RED CELL DISTRIBUTION WIDTH 13.7 % (11.5-14.5); WHITE BLOOD COUNT 12.5 x10^3/uL (4.0-11.0)
[2021-03-31 23:25] LABS: CREATININE 0.7 mg/dL (0.6-1.0); GFR 81.6
[2021-03-31 23:31] LABS: ALBUMIN 3.6 g/dL (3.4-5.0); ALBUMIN/GLOBULIN RATIO 0.8 (1.0-1.7); TOTAL BILIRUBIN 0.3 mg/dL (0.2-1.0); TOTAL PROTEIN 8.4 g/dL (6.4-8.2)
[2021-04-01] MEDS ORDERED: CONTRAST GIVEN. MC PRN ×2 (03:30→09:15)
[2021-04-01] MEDS ORDERED: MORPHINE SULFATE 4 MG/ML INJ. IVP ONE (03:30)
[2021-04-01] MEDS ORDERED: IV NORMAL SALINE 1000ML BAG 1,000 ML IV ONE (03:30)
[2021-04-01] MEDS ORDERED: ONDANSETRON PF 4 MG/2 ML VIAL. IVP ONE (03:30)
[2021-04-01] MEDS ORDERED: IOHEXOL 300 MG/ML 100ML VIAL. IV ONE (04:00)
--- NOTE | 2021-04-01 04:27 | RAD ---
PQRS Compliance Statement: One or more of the following individualized dose reduction techniques were utilized for this examinat ion: 1. Automated exposure control 2. Adjustment of the mA and/or kV according to patient size 3. Use of iterative reconstruction technique CT ABDOMEN+PELVIS W Clinical Indication: Reason: abd pain left abd / Comparison: None. Technique: Helical CT imaging of the abdomen and pelvis is performed after 75 cc of Omnipaque 300 IV contrast. Oral contrast not administered. Findings: Minimal bilateral dependent atelectasis. Coronary artery disease. The cardiac size is normal. The liver, gallbladder, spleen, pancreas, adrenal glands, and abdominal aorta caliber are normal. The re is moderate atherosclerotic calcification. Kidneys enhance symmetrically, no hydronephrosis. There are right renal cysts that do not require follow-up. The stomach is unremarkable. The appendix is normal. The ileum is decompressed. There is severe sigmo id colon diverticulosis. There is a 1.5 cm lipoma in the duodenum. There is no colon wall thickening. There are several fluid-filled and mildly dilated small bowel loops in the lower abdomen. A point of transition is not definitively seen. The urinary bladder is decompressed. Hysterectomy. No pelvic free fluid. No acute bone abnormality. IMPRESSION: 1. Findings suggest mid small bowel obstruction. Several small bowel loops in the lower abdomen are fluid-filled and mildly dilated. A definite point of transition is not seen. 2. Severe sigmoid colon diverticulosis. Electronically signed by: Sandeep Mullins MD (04/01/2021 4:24 AM) [facility]
--- NOTE | 2021-04-01 04:31 | EKG ---
[facility] [address] [place] [address] Test Date: 2021-04-01 Test Time: 04:17:13 Pat Name: AL NIETO Department: Room: Gender: F Joint Yarner: : 1945 Requested By: NATALIA MUHAMMAD Order Number: [id number] Reading MD: Ronnie Ritter Measurements Intervals Howe Rate: 77 P: 47 GA: 192 QRS: 7 QRSD: 90 T: 59 QT: 412 QTc: 468 Interpretive Statements SINUS RHYTHM VENTRICULAR PREMATURE COMPLEX(ES) Electronically Signed On 04-01-2021 12:35:32 COLOR GRINDER by Ronnie Ritter
--- NOTE | 2021-04-01 04:36 | PHYS DOC ---
Past Medical History Past Medical History: Cancer, High Cholesterol, Hypertension, Other Additional Past Medical Histor: RT CHRONIC KNEE PAIN, BREAST CANCER Past Surgical History: , Other Additional Past Surgical Histo: HERNIA, MASTECTOMYY, RECONSTRUCTION Smoking Status: Former Smoker Alcohol Use: Occasionally Drug Use: None General Adult EDM: Chief Complaint: ABDOMINAL PAIN HPI: HPI: 76-year-old female presents with a chief complaint of left-sided abdominal pain. Patient states abdominal pain started 2 hours prior to arrival has been con stant since onset pain is progressed to become worse. Patient states she has associated nausea and vomiting. She denies any diarrhea. Review of Systems: Review of Systems: Review of systems: Constitutional symptoms- No fever, no chills. Eyes- No Discharge, No Visual Loss Respiratory symptoms- No shortness of breath, No wheezing, No Dyspnea on Exertion Cardiovascular Systems; No chest pain, No Palpitations, No syncope Gastrointestinal symptoms: Positive abdominal pain, positive nausea, no vomiting or diarrhea. Genitourinary symptoms: No dysuria. Musculoskeletal symptoms: No back pain No extremity pain. NEUROLOGICAL Symptoms: No headache, no generalized weakness; No focal Weakness Skin: No rash. Heart Score: C/O Chest Pain: N/A Risk Factors: Risk Factors: DM, Current or recent (<one month) smoker, HTN, HLP, family history of CAD, obesity. Risk Scores: Score 0 - 3: 2.5% MACE over next 6 weeks - Discharge Home Score 4 - 6: 20.3% MACE over next 6 weeks - Admit for Clinical Observation Score 7 - 10: 72.7% MACE over next 6 weeks - Early Invasive Strategies Current Medications: Current Medications Medications (Trade) Dose Ordered Sig/Erik Start Time Stop Time Status Last Admin Dose Admin Info (CONTRAST GIVEN -- Rx MONITORING) 1 each PRN DAILY PRN 04/01/21 03:30 04/03/21 03:29 Iohexol (Omnipaque 300 Mg/ml) 75 ml 1X ONCE 04/01/21 04:00 04/01/21 04:01 DC 04/01/21 03:42 75 ML Morphine Sulfate (Morphine Sulfate) 4 mg 1X ONCE 04/01/21 03:30 04/01/21 03:31 DC 04/01/21 03:31 4 MG Ondansetron HCl (Zofran) 4 mg 1X ONCE 04/01/21 03:30 04/01/21 03:31 DC 04/01/21 03:30 4 MG Sodium Chloride 1,000 ml @ 1,000 mls/hr 1X ONCE 04/01/21 03:30 04/01/21 04:29 DC 04/01/21 03:30 1,000 MLS/HR Allergies: Allergies: Allergies Coded Allergies Type Severity Reaction Last Updated Verified Cephalosporins Allergy Intermediate BLISTERS 03/31/21 Yes Penicillins Allergy Intermediate "HUGE HIVES" SWELLING 03/31/21 Yes adhesive tape Allergy Intermediate BLISTERS 03/31/21 Yes bacitracin Allergy Intermediate BLISTERS 03/31/21 Yes polymyxin B Allergy Intermediate BLISTERS 03/31/21 Yes tetracycline Allergy Intermediate Itching 03/31/21 Yes codeine Adverse Reaction Intermediate PUKING 12/23/18 Yes Uncoded Allergies Type Severity Reaction Last Updated Verified CATGUT Allergy Intermediate REJECT 12/26/17 Physical Exam: PE: Constitutional: Well developed, well nourished, no acute distress, non-toxic appearance. [] HENT: Normocephalic, atraumatic, bilateral external ears normal, oropharynx moist, no oral exudates, nose normal. [] Eyes: PERRLA, EOMI, conjunctiva normal, no discharge. [] Neck: Normal range of motion, no tenderness, supple, no stridor. [] Cardiovascular:Heart rate regular rhythm, no murmur [] Lungs & Thorax: Bilateral breath sounds clear to auscultation [] Abdomen: Bowel sounds normal, soft, no tenderness, no masses, no pulsatile masses. [] Skin: Warm, dry, no erythema, no rash. [] Back: No tenderness, no CVA tenderness. [] Extremities: No tenderness, no cyanosis, no clubbing, ROM intact, no edema. [] Neurologic: Alert and oriented X 3, normal motor function, normal sensory function, no focal deficits noted. [] Psychologic: Affect normal, judgement normal, mood normal. [] Current Patient Data: Labs: Laboratory Tests Test 03/31/21 23:02 White Blood Count 12.5 x10^3/uL (4.0-11.0) H Red Blood Count 4.32 x10^6/uL (3.50-5.40) Hemoglobin 14.0 g/dL (12.0-15.5) Hematocrit 41.9 % (36.0-47.0) Mean Corpuscular Volume 97 fL (79-100) Mean Corpuscular Hemoglobin 32 pg (25-35) Mean Corpuscular Hemoglobin Concent 33 g/dL (31-37) Red Cell Distribution Width 13.7 % (11.5-14.5) Platelet Count 303 x10^3/uL (140-400) Neutrophils (%) (Auto) 76 % (31-73) H Lymphocytes (%) (Auto) 17 % (24-48) L Monocytes (%) (Auto) 5 % (0-9) Eosinophils (%) (Auto) 2 % (0-3) Basophils (%) (Auto) 1 % (0-3) Neutrophils # (Auto) 9.5 x10^3/uL (1.8-7.7) H Lymphocytes # (Auto) 2.1 x10^3/uL (1.0-4.8) Monocytes # (Auto) 0.6 x10^3/uL (0.0-1.1) Eosinophils # (Auto) 0.2 x10^3/uL (0.0-0.7) Basophils # (Auto) 0.1 x10^3/uL (0.0-0.2) Sodium Level 141 mmol/L (136-145) Potassium Level 4.0 mmol/L (3.5-5.1) Chloride Level 104 mmol/L (98-107) Carbon Dioxide Level 25 mmol/L (21-32) Anion Gap 12 (6-14) Blood Urea Nitrogen 21 mg/dL (7-20) H Creatinine 0.7 mg/dL (0.6-1.0) Estimated GFR (Cockcroft-Gault) 81.6 BUN/Creatinine Ratio 30 (6-20) H Glucose Level 128 mg/dL (70-99) H Calcium Level 9.0 mg/dL (8.5-10.1) Total Bilirubin 0.3 mg/dL (0.2-1.0) Aspartate Amino Transferase (AST) 23 U/L (15-37) Alanine Aminotransferase (ALT) 29 U/L (14-59) Alkaline Phosphatase 57 U/L (46-116) Total Protein 8.4 g/dL (6.4-8.2) H Albumin 3.6 g/dL (3.4-5.0) Albumin/Globulin Ratio 0.8 (1.0-1.7) L Lipase 129 U/L (73-393) Laboratory Tests 03/31/21 23:02 Laboratory Tests 03/31/21 23:02 Vital Signs: Vital Signs Date Time Temp Pulse Resp B/P (MAP) Pulse Ox O2 Delivery O2 Flow Rate FiO2 04/01/21 03:31 99 Room Air 04/01/21 01:02 69 18 125/89 (101) 03/31/21 21:59 98.1 98.1 EKG: EKG: Performed at 0417 Rate 77 Normal sinus rhythm No ST elevation No ST depression No acute NC [] Radiology/Procedures: Radiology/Procedures: [] Impression: CT ABDOMEN+PELVIS W Clinical Indication: Reason: abd pain left abd / Comparison: None. Technique: Helical CT imaging of the abdomen and pelvis is performed after 75 cc of Omnipaque 300 IV contrast. Oral contrast not administered. Findings: Minimal bilateral dependent atelectasis. Coronary artery disease. The cardiac size is normal. The liver, gallbladder, spleen, pancreas, adrenal glands, and abdominal aorta caliber are normal. There is moderate atherosclerotic calcification. Kidneys enhance symmetrically, no hydronephrosis. There are right renal cysts that do not require follow-up. The stomach is unremarkable. The appendix is normal. The ileum is decompressed. There is severe sigmoid colon diverticulosis. There is a 1.5 cm lipoma in the duodenum. There is no colon wall thickening. There are several fluid-filled and mildly dilated small bowel loops in the lower abdomen. A point of transition is not definitively seen. The urinary bladder is decompressed. Hysterectomy. No pelvic free fluid. No acute bone abnormality. IMPRESSION: 1. Findings suggest mid small bowel obstruction. Several small bowel loops in the lower abdomen are fluid-filled and mildly dilated. A definite point of transition is not seen. 2. Severe sigmoid colon diverticulosis. Course & Med Decision Making: Course & Med Decision Making Pertinent Labs and Imaging studies reviewed. (See chart for details) [] Patient was evaluated for chief complaint. Work-up consisted of laboratory analysis and radiologic imaging. Results reviewed and discussed with patient. Treatment included IV fluids morphine for pain Zofran for nausea. NG tube was ordered and placed. Patient admitted to the hospitalist with surgery consult. Boone Disclaimer: Boone Disclaimer: This electronic medical record was generated, in whole or in part, using a voice recognition dictation system. Departure Departure Impression: Primary Impression: Small bowel obstruction Additional Impression: Abdominal pain Disposition: ADMITTED INPATIENT Condition: STABLE Referrals: Kenisha MANDUJANO MD (PCP) NATALIA MUHAMMAD DO Apr 01, 2021 04:36
[2021-04-01] MEDS ORDERED: ONDANSETRON PF 4 MG/2 ML VIAL. IVP PRN (04:45)
[2021-04-01] MEDS: MORPHINE SULFATE 4 MG/ML INJ. IVP PRN ×3 (07:18→12:58)
[2021-04-01 07:45] VITALS: BP 145/74
--- NOTE | 2021-04-01 08:32 | PDOC2 ---
LYNN MONROY HOISTER 04/01/21 0832: CONSULT Date of Consult Date of Consult DATE: 04/01/21 TIME: 08:26 Reason for Consult Reason for Consult: SBO Referring Physician Referring Physician: ER Identification/Chief Complaint Chief Complaint abdominal pain Source Source: Chart review, Patient History of Present Illness Reason for Visit: Admitted with acute onset of worsening abdominal pain, nausea and emesis. Started last evening. Had normal stool yesterday am. Similar symptoms about a week ago, however resolved quickly. Multiple abdominal surgeries csection, hernia, TRAM flap Past Medical History Cardiovascular: HTN, Hyperlipidemia Pulmonary: Other GI: Other Hepatobiliary: No pertinent hx Psych: No pertinent hx Rheumatologic: Other Infectious disease: No pertinent hx Renal/: No pertinent hx Endocrine: No pertinent hx Past Surgical History Past Surgical History: , Mastectomy, Tonsillectomy, Other Family History Family History: Hypertension Social History Quit (30 years ago) ALCOHOL: occassional Drugs: None Lives: with Family Current Problem List Problem List Problems Medical Problems: (1) Abdominal pain Status: Acute (2) Small bowel obstruction Status: Acute Current Medications Current Medications Current Medications Sodium Chloride 1,000 ml @ 1,000 mls/hr 1X ONCE IV Last administered on 04/01/21at 03:30; Start 04/01/21 at 03:30; Stop 04/01/21 at 04:29; Status DC Morphine Sulfate (Morphine Sulfate) 4 mg 1X ONCE IVP Last administered on 04/01/21at 03:31; Start 04/01/21 at 03:30; Stop 04/01/21 at 03:31; Status DC Ondansetron HCl (Zofran) 4 mg 1X ONCE IVP Last administered on 04/01/21at 03:30; Start 04/01/21 at 03:30; Stop 04/01/21 at 03:31; Status DC Iohexol (Omnipaque 300 Mg/ml) 75 ml 1X ONCE IV Last administered on 04/01/21at 03:42; Start 04/01/21 at 04:00; Stop 04/01/21 at 04:01; Status DC Info (CONTRAST GIVEN -- Rx MONITORING) 1 each PRN DAILY PRN MC SEE COMMENTS; Start 04/01/21 at 03:30; Stop 04/03/21 at 03:29 Ondansetron HCl (Zofran) 4 mg PRN Q8HRS PRN IVP NAUSEA/VOMITING 1ST CHOICE; Start 04/01/21 at 04:45; Stop 04/02/21 at 04:44 Morphine Sulfate (Morphine Sulfate) 4 mg PRN Q2HR PRN IVP SEVERE PAIN 7-10 Last administered on 04/01/21at 07:18; Start 04/01/21 at 04:45; Stop 04/02/21 at 04:44 Sodium Chloride 1,000 ml @ 100 mls/hr Q10H IV ; Start 04/01/21 at 08:30; Status UNV Active Scripts Active Cipro (Ciprofloxacin Hcl) 250 Mg Tablet 2 Tab PO BID 7 Days Reported Acyclovir 400 Mg Tablet 1 Tab PO BID Hydrocodone-Apap 5-325 (Hydrocodone Bit/Acetaminophen) 1 Tab Tablet 1 Tab PO PRN Q6HRS PRN Alendronate Sodium 70 Mg Tablet 1 Tab PO WEEKLY Advil (Ibuprofen) 200 Mg Capsule 200 Mg PO BID PRN Gabapentin 300 Mg Capsule 300 Mg PO TID Zetia (Ezetimibe) 10 Mg Tablet 1 Tab PO QHS Allergies Allergies: Coded Allergies: Cephalosporins (Verified Allergy, Intermediate, BLISTERS, 03/31/21) Penicillins (Verified Allergy, Intermediate, "HUGE HIVES" SWELLING, 03/31/21) adhesive tape (Verified Allergy, Intermediate, BLISTERS, 03/31/21) bacitracin (Verified Allergy, Intermediate, BLISTERS, 03/31/21) polymyxin B (Verified Allergy, Intermediate, BLISTERS, 03/31/21) tetracycline (Verified Allergy, Intermediate, Itching, 03/31/21) codeine (Verified Adverse Reaction, Intermediate, PUKING, 12/23/18) Uncoded Allergies: CATGUT (Allergy, Intermediate, REJECT, 12/26/17) ROS General: No: Chills, Other (fevers ) PSYCHOLOGICAL ROS: No: Anxiety, Depression Eyes: No Blurry vision, No Double vision HEENT: No: Heacaches, Sore Throat Hematological and Lymphatic: No: Bleeding Problems, Blood Clots Respiratory: No: Cough, Shortness of breath Cardiovascular: No Chest Pain, No Palpitations Gastrointestinal: Yes Other (see hpi) Genitourinary: No Dysuria, No Hematuria Musculoskeletal: Yes Joint Pain; No Joint Swelling Neurological: No Confusion, No Impaired Coord/balance Skin: No Pruritus, No Rash Physical Exam General: Alert, Oriented X3, Cooperative HEENT: Other (ng in place ) Lungs: Clear to auscultation, Normal air movement Heart: Regular rate, Normal S1, Normal S2 Abdomen: Soft, Other (mild ttp mid abdomen, no peritoneal signs, mildly distended ) Extremities: No clubbing, No cyanosis Skin: No rashes, No breakdown Neuro: Normal gait, Normal speech Psych/Mental Status: Mental status NL, Mood NL MUSCULOSKELETAL: No deformity, No muscular tenderness noted Vitals VITALS Vital Signs Date Time Temp Pulse Resp B/P (MAP) Pulse Ox O2 Delivery O2 Flow Rate FiO2 04/01/21 07:18 24 99 Room Air 04/01/21 03:29 72 161/80 (107) 2.0 03/31/21 21:59 98.1 98.1 Labs Labs Laboratory Tests Test 03/31/21 23:02 04/01/21 07:00 White Blood Count 12.5 x10^3/uL (4.0-11.0) Red Blood Count 4.32 x10^6/uL (3.50-5.40) Hemoglobin 14.0 g/dL (12.0-15.5) Hematocrit 41.9 % (36.0-47.0) Mean Corpuscular Volume 97 fL (79-100) Mean Corpuscular Hemoglobin 32 pg (25-35) Mean Corpuscular Hemoglobin Concent 33 g/dL (31-37) Red Cell Distribution Width 13.7 % (11.5-14.5) Platelet Count 303 x10^3/uL (140-400) Neutrophils (%) (Auto) 76 % (31-73) Lymphocytes (%) (Auto) 17 % (24-48) Monocytes (%) (Auto) 5 % (0-9) Eosinophils (%) (Auto) 2 % (0-3) Basophils (%) (Auto) 1 % (0-3) Neutrophils # (Auto) 9.5 x10^3/uL (1.8-7.7) Lymphocytes # (Auto) 2.1 x10^3/uL (1.0-4.8) Monocytes # (Auto) 0.6 x10^3/uL (0.0-1.1) Eosinophils # (Auto) 0.2 x10^3/uL (0.0-0.7) Basophils # (Auto) 0.1 x10^3/uL (0.0-0.2) Sodium Level 141 mmol/L (136-145) Potassium Level 4.0 mmol/L (3.5-5.1) Chloride Level 104 mmol/L (98-107) Carbon Dioxide Level 25 mmol/L (21-32) Anion Gap 12 (6-14) Blood Urea Nitrogen 21 mg/dL (7-20) Creatinine 0.7 mg/dL (0.6-1.0) Estimated GFR (Cockcroft-Gault) 81.6 BUN/Creatinine Ratio 30 (6-20) Glucose Level 128 mg/dL (70-99) Calcium Level 9.0 mg/dL (8.5-10.1) Total Bilirubin 0.3 mg/dL (0.2-1.0) Aspartate Amino Transf (AST/SGOT) 23 U/L (15-37) Alanine Aminotransferase (ALT/SGPT) 29 U/L (14-59) Alkaline Phosphatase 57 U/L (46-116) Total Protein 8.4 g/dL (6.4-8.2) Albumin 3.6 g/dL (3.4-5.0) Albumin/Globulin Ratio 0.8 (1.0-1.7) Lipase 129 U/L (73-393) Lactic Acid Level 1.0 mmol/L (0.4-2.0) Laboratory Tests Test 03/31/21 23:02 04/01/21 07:00 White Blood Count 12.5 x10^3/uL (4.0-11.0) Red Blood Count 4.32 x10^6/uL (3.50-5.40) Hemoglobin 14.0 g/dL (12.0-15.5) Hematocrit 41.9 % (36.0-47.0) Mean Corpuscular Volume 97 fL (79-100) Mean Corpuscular Hemoglobin 32 pg (25-35) Mean Corpuscular Hemoglobin Concent 33 g/dL (31-37) Red Cell Distribution Width 13.7 % (11.5-14.5) Platelet Count 303 x10^3/uL (140-400) Neutrophils (%) (Auto) 76 % (31-73) Lymphocytes (%) (Auto) 17 % (24-48) Monocytes (%) (Auto) 5 % (0-9) Eosinophils (%) (Auto) 2 % (0-3) Basophils (%) (Auto) 1 % (0-3) Neutrophils # (Auto) 9.5 x10^3/uL (1.8-7.7) Lymphocytes # (Auto) 2.1 x10^3/uL (1.0-4.8) Monocytes # (Auto) 0.6 x10^3/uL (0.0-1.1) Eosinophils # (Auto) 0.2 x10^3/uL (0.0-0.7) Basophils # (Auto) 0.1 x10^3/uL (0.0-0.2) Sodium Level 141 mmol/L (136-145) Potassium Level 4.0 mmol/L (3.5-5.1) Chloride Level 104 mmol/L (98-107) Carbon Dioxide Level 25 mmol/L (21-32) Anion Gap 12 (6-14) Blood Urea Nitrogen 21 mg/dL (7-20) Creatinine 0.7 mg/dL (0.6-1.0) Estimated GFR (Cockcroft-Gault) 81.6 BUN/Creatinine Ratio 30 (6-20) Glucose Level 128 mg/dL (70-99) Calcium Level 9.0 mg/dL (8.5-10.1) Total Bilirubin 0.3 mg/dL (0.2-1.0) Aspartate Amino Transf (AST/SGOT) 23 U/L (15-37) Alanine Aminotransferase (ALT/SGPT) 29 U/L (14-59) Alkaline Phosphatase 57 U/L (46-116) Total Protein 8.4 g/dL (6.4-8.2) Albumin 3.6 g/dL (3.4-5.0) Albumin/Globulin Ratio 0.8 (1.0-1.7) Lipase 129 U/L (73-393) Lactic Acid Level 1.0 mmol/L (0.4-2.0) Assessment/Plan Assessment/Plan SBO CT noted, sbo, noted lipoma in duodenum will check SBFT consult 25 min MARI CABRERA MD 04/01/21 0855: CONSULT Assessment/Plan Assessment/Plan Patient seen and examined by me she is resting comfortably in bed right now with no pain. Reviewed CT scan showing signs consistent with a small bowel obstruction versus ileus NG tube in place with minimal output. Patient scheduled for small bowel follow-through today agree with [place] assessment plan LYNN MONROY APRN Apr 01, 2021 08:32 MARI CABRERA MD Apr 01, 2021 08:55
[2021-04-01] MEDS ORDERED: IOHEXOL 300 MG/ML 100ML VIAL. PO ONE (09:15)
[2021-04-01 11:00] VITALS: BP 149/76
--- NOTE | 2021-04-01 11:07 | HP ---
DATE OF SERVICE: 04/01/2021 ADMIT DATE: 04/01/2021 CHIEF COMPLAINT: Abdominal pain. HISTORY OF PRESENT ILLNESS: The patient is a pleasant 76-year-old female who has had a history of multiple abdominal surgeries. She presented with abdominal pain. We did some imaging showing a small-bowel obstruction. The patient has now been admitted. We are consulting General Surgery. The patient is being examined in the Radiology area where we are doing a small bowel follow through. PAST MEDICAL HISTORY: Multiple abdominal surgeries, hypertension, hyperlipidemia, chronic knee pain, breast cancer, mastectomy, hernia repair, tobacco abuse. ALLERGIES: CEPHALEXIN, PENICILLIN, ADHESIVE TAPE, BACITRACIN, CODEINE, TETRACYCLINE. FAMILY HISTORY: Diabetes. SOCIAL HISTORY: She is retired. Does not drink, smoke or take drugs. MEDICATIONS: Reviewed, please refer to the MRAD. REVIEW OF SYSTEMS: GENERAL: No history of weight change, weakness or fevers. SKIN: No bruising, hair changes or rashes. EYES: No blurred, double or loss of vision. NOSE AND THROAT: No history of nosebleeds, hoarseness or sore throat. HEART: No history of palpitations, chest pain or shortness of breath on exertion. LUNGS: Denies cough, hemoptysis, wheezing or shortness of breath. GASTROINTESTINAL: She complains of abdominal pain. GENITOURINARY: No history of frequency, urgency, hesitancy or nocturia. NEUROLOGIC: Denies history of numbness, tingling, tremor or weakness. PSYCHIATRIC: No history of panic, anxiety or depression. ENDOCRINE: No history of heat or cold intolerance, polyuria or polydipsia. EXTREMITIES: Denies muscle weakness, joint pain, pain on walking or stiffness. PHYSICAL EXAMINATION: VITALS: Within normal limits and are stable. GENERAL: No apparent distress. Alert and oriented. HEENT: Normal cephalic atraumatic, external auditory canals are patent EYES: Extraocular muscles are intact, pupils are equally round and reactive to light and accommodation MUSCULOSKELETAL: Well developed, well nourished, good range of motion ENDOCRINE: No thyromegaly was palpated LYMPHATICS: No cervical chain or axillary nodes were noted HEMATOPOIETIC: No bruising NECK: Supple, no JVD, no thyromegaly was noted. LUNGS: Clear to auscultation in all lung bragg without rhonchi or wheezing. HEART: RRR, S1, S2 present. Peripheral pulses intact, no obvious murmurs were noted. ABDOMEN: She has decreased bowel sounds and some tenderness to palpation. EXTREMITIES: Without any cyanosis, clubbing, or edema. Pedal pulses intact, Homans sign is negative. NEUROLOGIC: Normal speech, normal tone. A and O x 3, moves all extremities, no obvious focal deficits. PSYCHIATRIC: Normal affect, normal mood. Stable. SKIN: No ulcerations or rashes, good skin turgor, no jaundice. VASCULAR: Good capillary refill, neurovascular bundle appears to be intact. IMAGING: Abdominal CT shows small-bowel obstruction. ASSESSMENT AND PLAN: Small-bowel obstruction. The patient has been admitted. We have consulted General Surgery. P.r.n. pain meds. P.r.n. Zofran. IV fluids. Home meds when possible, but right now she is n.p.o. Deep thrombosis prophylaxis. Full code. Await our small bowel follow through results. HARISH DR: Clau TID: [id number]
--- NOTE | 2021-04-01 11:33 | NUR ---
SW following. Discussed with RN, pt from home with , room air, NPO. Surgery following. No SW needs identified at this time. SW will continue to follow.
[2021-04-01 15:00] VITALS: BP 142/85
--- NOTE | 2021-04-01 16:18 | RAD ---
EXAM: Small bowel follow-through exam. HISTORY: Small bowel obstruction. TECHNIQUE: A greens tier image of the abdomen was obtained. Serial overhead images were then obtained follo wing the administration of water-soluble contrast through an existing nasogastric tube. COMPARISON: CT dated 04/01/2021. FINDINGS: The greens tier image of the abdomen demonstrates prominent air-filled loops of small bowel withi n the lower abdomen. There is gas and stool within the colon. There is contrast within the bladder du e to a recent contrast-enhanced CT. There is a nasogastric tube within the stomach. There is mild S-s haped lumbar scoliosis. Note is made that the nasogastric tube was unknowingly retracted into the distal esophagus between th e greens tier image at 0932 hours and the 0 minute image at 0945 hours. The 0 minute images demonstrate con trast opacification of the stomach and normal caliber loops of proximal small bowel. There is a small proximal duodenal diverticulum. There is a small amount of contrast within the distal esophagus like ly due to nasogastric tube positioning or gastroesophageal reflux. The subsequent overhead images dem onstrate delayed transit of contrast into the colon. This is seen between the 4 hour and 10 minutes a nd 6 hour images. There are distended loops of small bowel within the lower abdomen and pelvis to the right of midline. No transition point is seen. There is residual contrast within the stomach throughout the exam. IMPRESSION: 1. Distended loops of small bowel within the lower abdomen and pelvis primarily to the right of midli ne. Despite the absence of a convincing transition point, the imaging appearance favors low-grade obs truction. 2. Delayed transit of contrast into the colon. 3. Persistent retained contrast within the stomach and possibly reflux of contrast into the distal es ophagus. 4. No convincing intrinsic small bowel mucosal lesion, stricture or fistula. There is a small proxima l duodenal diverticulum. 5. Note is made that the nasogastric tube within the stomach on a greens tier image and was retracted on terrell bsequent images into the distal esophagus. Tube repositioning is recommended. Electronically signed by: Debbie Madrid MD (04/01/2021 4:16 PM) [id number]
[2021-04-01] MEDS: IV NORMAL SALINE 1000ML BAG 1,000 ML IV SCH (18:21)
--- NOTE | 2021-04-01 18:32 | NUR ---
Nevaeh was not able to tolerate the NG being clamped for the small bowel series. went to radiology to give morphine x1 and she was nauseated at that time. around 1330; she became nauseated and had 500 cc emesis and was complaining of increase pain. she was medicated morphine and Zofran. the ng was placed to low intermittent suction. she has not had any further pain medication or nausea. she states that she did have 2 liquid stools.
[2021-04-01 19:00] VITALS: BP 145/70
[2021-04-01 23:00] VITALS: BP 137/68
[2021-04-02 03:00] VITALS: BP 133/65
[2021-04-02] MEDS: IV NORMAL SALINE 1000ML BAG 1,000 ML IV SCH ×3 (03:59→14:25)
[2021-04-02 07:00] VITALS: BP 151/67
--- NOTE | 2021-04-02 09:57 | PDOC ---
SURGICAL PROGRESS NOTE DATE: 04/02/21 TIME: 09:56 Subjective Patient feeling much better this morning has had several loose bowel movements Vital Signs Vital Signs Date Time Temp Pulse Resp B/P (MAP) Pulse Ox O2 Delivery O2 Flow Rate FiO2 04/02/21 07:00 98.3 62 18 151/67 (95) 98 98.3 04/01/21 23:00 Room Air I&O Intake and Output 04/02/21 07:00 Intake Total 1000 ml Output Total 3 ml Balance 997 ml Intake IV Total 1000 ml Output Urine Total 3 ml # Voids 6 # Bowel Movements 3 PATIENT HAS A GARZON: No General: Alert, Oriented X3, Cooperative, No acute distress Lungs: Clear to auscultation, Normal air movement Abdomen: Normal bowel sounds, Soft, No tenderness, Other (NG tube with minimal output) Labs Laboratory Tests Test 03/31/21 23:02 04/01/21 07:00 White Blood Count 12.5 x10^3/uL (4.0-11.0) Red Blood Count 4.32 x10^6/uL (3.50-5.40) Hemoglobin 14.0 g/dL (12.0-15.5) Hematocrit 41.9 % (36.0-47.0) Mean Corpuscular Volume 97 fL (79-100) Mean Corpuscular Hemoglobin 32 pg (25-35) Mean Corpuscular Hemoglobin Concent 33 g/dL (31-37) Red Cell Distribution Width 13.7 % (11.5-14.5) Platelet Count 303 x10^3/uL (140-400) Neutrophils (%) (Auto) 76 % (31-73) Lymphocytes (%) (Auto) 17 % (24-48) Monocytes (%) (Auto) 5 % (0-9) Eosinophils (%) (Auto) 2 % (0-3) Basophils (%) (Auto) 1 % (0-3) Neutrophils # (Auto) 9.5 x10^3/uL (1.8-7.7) Lymphocytes # (Auto) 2.1 x10^3/uL (1.0-4.8) Monocytes # (Auto) 0.6 x10^3/uL (0.0-1.1) Eosinophils # (Auto) 0.2 x10^3/uL (0.0-0.7) Basophils # (Auto) 0.1 x10^3/uL (0.0-0.2) Sodium Level 141 mmol/L (136-145) Potassium Level 4.0 mmol/L (3.5-5.1) Chloride Level 104 mmol/L (98-107) Carbon Dioxide Level 25 mmol/L (21-32) Anion Gap 12 (6-14) Blood Urea Nitrogen 21 mg/dL (7-20) Creatinine 0.7 mg/dL (0.6-1.0) Estimated GFR (Cockcroft-Gault) 81.6 BUN/Creatinine Ratio 30 (6-20) Glucose Level 128 mg/dL (70-99) Calcium Level 9.0 mg/dL (8.5-10.1) Total Bilirubin 0.3 mg/dL (0.2-1.0) Aspartate Amino Transf (AST/SGOT) 23 U/L (15-37) Alanine Aminotransferase (ALT/SGPT) 29 U/L (14-59) Alkaline Phosphatase 57 U/L (46-116) Total Protein 8.4 g/dL (6.4-8.2) Albumin 3.6 g/dL (3.4-5.0) Albumin/Globulin Ratio 0.8 (1.0-1.7) Lipase 129 U/L (73-393) Lactic Acid Level 1.0 mmol/L (0.4-2.0) Problem List Problems Medical Problems: (1) Abdominal pain Status: Acute (2) Small bowel obstruction Status: Acute Assessment/Plan Small bowel follow-through shows contrast in the colon she has had several bowel movements will DC NG tube and start clear liquids Justicifation of Admission Dx: Justifications for Admission: Justification of Admission Dx: N/A MARI CABRERA MD Apr 02, 2021 09:57
--- NOTE | 2021-04-02 10:19 | PDOC ---
[facility] PROGRESS NOTE Date of Service DOS: DATE: 04/02/21 TIME: 10:15 Chief Complaint Chief Complaint Abdominal pain. SBO History of Present Illness History of Present Illness The patient is a pleasant 76-year-old female who has had a history of multiple abdominal surgeries. She presented with abdominal pain. We did some imaging showing a small-bowel obstruction. The patient has now been admitted. We are consulting General Surgery. 04/02/21 Patient seen and examined Patient had a BM this morning. Chart Reviewed Discussed with RN Vitals/I&O Vitals/I&O: Vital Signs Date Time Temp Pulse Resp B/P (MAP) Pulse Ox O2 Delivery O2 Flow Rate FiO2 04/02/21 07:00 98.3 62 18 151/67 (95) 98 98.3 04/01/21 23:00 Room Air I & O 04/01/21 04/01/21 04/02/21 15:00 23:00 07:00 Intake Total 1000 ml Output Total 3 ml Balance -3 ml 1000 ml Physical Exam General: Alert, Oriented X3, Cooperative, No acute distress Heart: Regular rate, Normal S1, Normal S2 Abdomen: Normal bowel sounds, Soft, No tenderness, Other (NG tube with minimal output) Extremities: No clubbing, No cyanosis Skin: No rashes, No breakdown Assessment and Plan Assessmemt and Plan Assessment: Abdominal pain SBO Plan: Home Meds DVT prophylaxis Full code Clamp NG tube if ok with surgery Comment Review of Relevant I have reviewed the following items mariam (where applicable) has been applied. Justifications for Admission Other Justification BRUCE DELACRUZ III DO Apr 02, 2021 10:19
[2021-04-02 11:00] VITALS: BP 144/61
[2021-04-02 15:00] VITALS: BP 158/77
[2021-04-02 19:00] VITALS: BP 165/78
--- NOTE | 2021-04-02 19:28 | NUR ---
NG removed per Dr. Thurman ordered
[2021-04-02 23:00] VITALS: BP 151/68
[2021-04-03 03:00] VITALS: BP 165/75
[2021-04-03 07:00] VITALS: BP 148/72
[2021-04-03] MEDS: IV NORMAL SALINE 1000ML BAG 1,000 ML IV SCH ×2 (07:28→10:30)
--- NOTE | 2021-04-03 09:35 | PDOC ---
SURGICAL PROGRESS NOTE DATE: 04/03/21 TIME: 09:34 Subjective Patient doing quite well tolerating clear liquids has had several bowel movements no nausea Vital Signs Vital Signs Date Time Temp Pulse Resp B/P (MAP) Pulse Ox O2 Delivery O2 Flow Rate FiO2 04/03/21 03:00 98.3 62 14 165/75 (105) 97 Room Air 98.3 04/02/21 08:15 2.0 General: Alert, Oriented X3, Cooperative, No acute distress Abdomen: Normal bowel sounds, Soft, No tenderness Problem List Problems Medical Problems: (1) Abdominal pain Status: Acute (2) Small bowel obstruction Status: Acute Assessment/Plan Small bowel obstruction appears to have resolved would advance diet if tolerated would recommend discharge home Justicifation of Admission Dx: Justifications for Admission: Justification of Admission Dx: N/A MARI CABRERA MD Apr 03, 2021 09:35
[2021-04-03 11:00] VITALS: BP 147/57
--- NOTE | 2021-04-03 11:29 | PDOC ---
[facility] PROGRESS NOTE Date of Service DOS: DATE: 04/03/21 TIME: 11:28 Chief Complaint Chief Complaint Abdominal pain. SBO History of Present Illness History of Present Illness The patient is a pleasant 76-year-old female who has had a history of multiple abdominal surgeries. She presented with abdominal pain. We did some imaging showing a small-bowel obstruction. The patient has now been admitted. We are consulting General Surgery. 04/03/21 Patient seen and examined Patient has had several loose bowel movements Patient started on clear liquid diet Chart Reviewed Discussed with RN 04/02/21 Patient seen and examined Patient had a BM this morning. Chart Reviewed Discussed with RN Vitals/I&O Vitals/I&O: Vital Signs Date Time Temp Pulse Resp B/P (MAP) Pulse Ox O2 Delivery O2 Flow Rate FiO2 04/03/21 08:00 Room Air 2.0 04/03/21 07:00 97.5 74 18 148/72 (97) 92 97.5 Physical Exam General: Alert, Oriented X3, Cooperative, No acute distress Heart: Regular rate, Normal S1, Normal S2 Abdomen: Normal bowel sounds, Soft, No tenderness Extremities: No clubbing, No cyanosis Skin: No rashes, No breakdown Assessment and Plan Assessmemt and Plan Problems Medical Problems: (1) Abdominal pain Status: Acute (2) Small bowel obstruction Status: Acute Assessment: Abdominal pain SBO Plan: ADAT Home Meds DVT prophylaxis Full code Probably discharge this afternoon if diet tolerated Comment Review of Relevant I have reviewed the following items mariam (where applicable) has been applied. Justifications for Admission Other Justification BRUCE DELACRUZ III, DO Apr 03, 2021 11:29
--- NOTE | 2021-04-03 12:59 | DS ---
DATE OF DISCHARGE: 04/03/2021 ADMITTING DIAGNOSIS: Small-bowel obstruction. DISCHARGE DIAGNOSES: Resolving small-bowel obstruction, history of osteoporosis, history of urinary tract infections, neuropathy, chronic pain, arthritis. CONSULTS: General Surgery. PROCEDURES: None. HOSPITAL COURSE: The patient is a pleasant, middle-aged female who presented with small-bowel obstruction. We had to place an NG. We did a small bowel follow through, which was not severely obstructed. Over the last couple days, her symptoms have resolved. We removed the NG tube. She is tolerating clears. We plan to advance her diet and discharge this afternoon. DISPOSITION: Home. ACTIVITY: As tolerated. DIET: Low sodium. DISCHARGE MEDICATIONS: Please see the MRAD. Acyclovir 400 b.i.d., alendronate 70 mg a week, Cipro 500 b.i.d., Zetia 10 mg a day, gabapentin 300 t.i.d., hydrocodone p.r.n. and p.r.n. ibuprofen. TOTAL TIME: [address]: Clau TID: [id number]
--- NOTE | 2021-04-03 14:20 | NUR ---
Pt able to tolerate diet. Discharged home with self care. Discharge instructions discussed. Pt verbalized understanding. IV removed. Pt ambulated to main entrance and was secured in car with .
== END 2021-04-03 14:22 | disposition home or self-care (01) | DRG 390 ==
LOC: ER 21:51 → 4 NORTH 04-01 04:40
PROVIDERS: ADMIT Student in an Organized Health Care Education/Training Program; ATTEND Student in an Organized Health Care Education/Training Program
PROC: 0D9670Z Drainage of Stomach with Drainage Device, Via Natural or Artificial Opening (ICD-10-PCS; principal; 2021-04-01)
DX: K56.609 Unspecified intestinal obstruction, unspecified as to partial versus complete obstruction (principal); D17.9 Benign lipomatous neoplasm, unspecified; E78.00 Pure hypercholesterolemia, unspecified; E78.5 Hyperlipidemia, unspecified; I10 Essential (primary) hypertension; K57.30 Diverticulosis of large intestine without perforation or abscess without bleeding; M81.0 Age-related osteoporosis without current pathological fracture; Z82.49 Family history of ischemic heart disease and other diseases of the circulatory system; Z83.3 Family history of diabetes mellitus; Z85.3 Personal history of malignant neoplasm of breast; Z87.440 Personal history of urinary (tract) infections; Z87.891 Personal history of nicotine dependence; G62.9 Polyneuropathy, unspecified; G89.29 Other chronic pain; M19.90 Unspecified osteoarthritis, unspecified site; Z88.0 Allergy status to penicillin; Z88.8 Allergy status to other drugs, medicaments and biological substances; Z91.048 Other nonmedicinal substance allergy status; Z90.49 Acquired absence of other specified parts of digestive tract
CPT/HCPCS: 36415; 74177; 74250; 80053; 83605; 83690; 85025; 93005; 96361; 96374; 96375; J2270; J2405; J7030; Q9967; 99285-25; G0378

== ENCOUNTER → 2021-04-26 | Outpatient (CLI) | payer MEDICARE ==
[2021-04-03 11:00] VITALS: BP 147/57
[2021-04-26 09:53] LABS: BASO # 0.1 x10^3/uL (0.0-0.2); BASO % 1 % (0-3); EOS # 0.2 x10^3/uL (0.0-0.7); EOS % 4 % (0-3); HEMATOCRIT 38.2 % (36.0-47.0); HEMOGLOBIN 12.8 g/dL (12.0-15.5); LYMPH # 2.5 x10^3/uL (1.0-4.8); LYMPH % 48 % (24-48); MEAN CORPUSCULAR HEMOGLOBIN 32 pg (25-35); MEAN CORPUSCULAR HGB CONC 34 g/dL (31-37); MEAN CORPUSCULAR VOLUME 96 fL (79-100); MONO # 0.4 x10^3/uL (0.0-1.1); MONO % 8 % (0-9); NEUT % 39 % (31-73); PLATELET COUNT 290 x10^3/uL (140-400); RED BLOOD COUNT 3.98 x10^6/uL (3.50-5.40); RED CELL DISTRIBUTION WIDTH 13.6 % (11.5-14.5); WHITE BLOOD COUNT 5.2 x10^3/uL (4.0-11.0)
[2021-04-26 10:37] LABS: ALBUMIN 3.4 g/dL (3.4-5.0); ALBUMIN/GLOBULIN RATIO 0.8 (1.0-1.7); CALCIUM 8.2 mg/dL (8.5-10.1); CREATININE 0.6 mg/dL (0.6-1.0); GFR 97.5; POTASSIUM 4.3 mmol/L (3.5-5.1); TOTAL BILIRUBIN 0.5 mg/dL (0.2-1.0); TOTAL PROTEIN 7.6 g/dL (6.4-8.2)
== END ==
LOC: SURGPAT 09:19
PROVIDERS: ATTEND Neurological Surgery
DX: Z01.812 Encounter for preprocedural laboratory examination (principal); M47.22 Other spondylosis with radiculopathy, cervical region
CPT/HCPCS: 36415; 80053; 85025; 87641

== ENCOUNTER 2021-05-04 10:38 | Inpatient (IN) | payer MEDICARE ==
[2021-04-26 10:09] VITALS: BP 138/89
--- NOTE | 2021-05-03 15:41 | PREOP HP ---
DATE OF SERVICE: 05/04/2021 HISTORY OF PRESENT ILLNESS: The patient is a pleasant 76-year-old who has a severe left cervical radiculopathy and neural foraminal narrowing at C4-5 and to a lesser extent C5-6. She has had physical therapy as well as epidural steroid injections for this problem, which have not given her lasting relief. The problem has been present for more than 3 years. She takes Tylenol as needed. She rates her pain 8/10 and says that when she becomes active, the pain is more severe. The pain is in the left side of her neck and radiates to the left shoulder. She has mild pain in the right shoulder. CURRENT MEDICATIONS: Tylenol. PAST MEDICAL HISTORY: Cancer, arthritis, osteoporosis, shingles, tonsillitis. PAST SURGICAL HISTORY: Mastectomy. FAMILY HISTORY: Alzheimer's disease, cancer, diabetes, heart disease, [place]. 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 . Quit smoking more than 10 years ago. Drinks alcohol 1-2 times per week. ALLERGIES: PENICILLIN AND CODEINE. REVIEW OF SYSTEMS: A 12-point review of systems was performed and is noncontributory except that mentioned above. PHYSICAL EXAMINATION: GENERAL: Alert, pleasant, in no acute distress. HEENT: Head is normocephalic, atraumatic. NECK: Hidv-oh-foddxwmk tenderness with palpation of the posterior cervical region. SKIN: Warm and dry. MUSCULOSKELETAL: Cervical paraspinal muscle bulk is normal, restricted range of motion of the cervical spine, normal range of motion of the upper extremities bilaterally. EXTREMITIES: No clubbing, cyanosis or edema. NEUROLOGIC: Alert and oriented x 3. Strength is 5/5 in the bilateral upper and lower extremities, sensory was intact to light touch in upper and lower extremities. Reflexes were present and symmetric in the upper and lower extremities bilaterally. Normal gait. IMAGING: I reviewed a cervical MRI scan as well as a cervical myelogram. She does have couple of areas of foraminal narrowing, although the findings were not severe. The problem is that her pain is severe and has gone on for years despite conservative measures. I feel that the pain is radicular and recommend a 2-level ACDF at C4-5 and C5-6. I spoke with her about surgery. I explained that surgery may not be of benefit. I felt that overall she has a good chance of improvement. I outlined the surgical risks including injury to soft tissue structures of the neck and the expected postoperative course. She understands and would like to proceed. ARINA DR: Judah TID: [id number]
[2021-05-04] VITALS (9 sets, daily range): BP systolic 106–170; BP diastolic 59–105
[~2021-05-04] VITALS: Ht 172.7 cm; Wt 85.0 kg
[~2021-05-04 10:38] MED LIST changes: +BUPIVACAINE-EPI 0.5% 30 ML VIAL KIT. ONE; +GELATIN SPONGE SIZE 100. ONE; +HYDROmorphone 2 MG/ML INJ. IVP PRN; +LIDOCAINE 2% PF 5 ML VIAL. ONE; +ONDANSETRON PF 4 MG/2 ML VIAL. ONE; +PHENYLEPHRINE 10 MG/ML VIAL. ONE; +PROPOFOL 10 MG/ML (20ML) VIAL. IV ONE; +PROPOFOL 50 ML IV ONE; +REMIFENTANIL 1 MG VIAL. IV ONE; +ROCURONIUM 50 MG/5 ML VIAL. ONE; +THROMBIN TOPICAL 20,000 UNIT SPRAY.SYRN KIT TP ONE; +VANCOMYCIN 1 GM in IV NORMAL SALINE 1000ML BAG 1,000 ML IV ONE; +VANCOMYCIN 1 GM in IV NORMAL SALINE 250ML 250 ML IV PRN; +fentaNYL PF VIAL 100 MCG/2 ML VIAL IVP PRN
[2021-05-04] MEDS ORDERED: fentaNYL PF VIAL 100 MCG/2 ML VIAL ONE ×2 (10:39→16:11)
[2021-05-04] MEDS ORDERED: ePHEDrine PF IN SALINE 50 MG/10 ML SYRINGE. IV ONE (11:01)
[2021-05-04] MEDS: IV RINGERS,LACTATED 1000ML 1,000 ML IV SCH ×2 (11:25→16:24)
[2021-05-04] MEDS ORDERED: SCOPOLAMINE 1.5MG PATCH. TD ONE (11:30)
[2021-05-04] MEDS ORDERED: PROPOFOL 50 ML IV ONE (11:53)
--- NOTE | 2021-05-04 12:08 | NUR ---
ATTEMPTED TO PLACE SCOPOLAMINE PATCH ON PT. PT STATED IT MAKES HER BLADDER GO TO SLEEP. DID NOT PLACE PATCH ON PT.
[2021-05-04] MEDS ORDERED: DEXAMETHASONE SOD PHOS 4 MG/ML VIAL ONE (12:25)
[2021-05-04] MEDS ORDERED: NEOSTIGMINE METHYLSULFATE 5 MG/5 ML SYRINGE. ONE (13:45)
[2021-05-04] MEDS ORDERED: DEXAMETHASONE SOD PHOS 20 MG/5 ML VIAL. ONE (13:49)
[2021-05-04] MEDS ORDERED: ONDANSETRON PF 4 MG/2 ML VIAL. IVP PRN (16:00)
[2021-05-04] MEDS ORDERED: 0.9 % SODIUM CHLORIDE 10 ML DISP.SYRIN. IV PRN (16:00)
[2021-05-04] MEDS ORDERED: ACETAMINOPHEN 325 MG TABLET. PO PRN (16:00)
[2021-05-04] MEDS ORDERED: NALOXONE 0.4 MG/ML VIAL. IV PRN (16:00)
[2021-05-04] MEDS ORDERED: fentaNYL PF VIAL 100 MCG/2 ML VIAL IVP PRN (16:00)
[2021-05-04] MEDS ORDERED: MAGNESIUM HYDROXIDE 2,400 MG/30 ML ORAL.SUSP. PO PRN (16:00)
[2021-05-04] MEDS ORDERED: CALCIUM CARBONATE 500 MG TAB.CHEW PO PRN (16:00)
[2021-05-04] MEDS ORDERED: HYDROcodone/APAP 7.5/325MG 1 TAB TABLET PO PRN (16:00)
[2021-05-04] MEDS ORDERED: MAG HYDROX/ALUMINUM HYD/SIMETH 30 ML ORAL.SUSP PO PRN (16:00)
[2021-05-04] MEDS: fentaNYL PF VIAL 100 MCG/2 ML VIAL IVP PRN ×2 (16:16→16:24)
[2021-05-04] MEDS ORDERED: MORPHINE SULFATE 2 MG/ML INJ. ONE (16:40)
[2021-05-04] MEDS ORDERED: PROCHLORPERAZINE 10 MG/2 ML VIAL. ONE (16:41)
[2021-05-04] MEDS: PROCHLORPERAZINE 10 MG/2 ML VIAL. IVP PRN ×2 (16:46→17:18)
[2021-05-04] MEDS: MORPHINE SULFATE 2 MG/ML INJ. IVP PRN ×2 (16:47→16:58)
[2021-05-04] MEDS: POTASSIUM CL 20MEQ D5-0.45NACL 1,000 ML IV SCH (18:00)
[2021-05-04] MEDS: HYDROcodone/APAP 7.5/325MG 1 TAB TABLET PO PRN (19:03)
[2021-05-04] MEDS: METHOCARBAMOL 750 MG TABLET PO SCH (20:40)
[2021-05-04] MEDS: ACYCLOVIR 200 MG CAPSULE. PO SCH (20:40)
[2021-05-04] MEDS: DOCUSATE SODIUM 100 MG CAPSULE. PO SCH (20:41)
[2021-05-04] MEDS: GABAPENTIN 300 MG CAPSULE. PO SCH (20:41)
[2021-05-04] MEDS ORDERED: EZETIMIBE 10 MG TABLET. PO SCH (21:00)
--- NOTE | 2021-05-04 21:11 | OP ---
DATE OF SURGERY: 05/04/2021 PREOPERATIVE DIAGNOSIS: Cervical radiculopathy. POSTOPERATIVE DIAGNOSIS: Cervical radiculopathy. OPERATION PERFORMED: Anterior cervical microdiscectomy, C4-5, C5-6; anterior cervical interbody fusion, C4-5, C5-6; anterior cervical plate C4, 5, 6; the operation was done with EMG monitoring, SSEP monitoring, fluoroscopy, microscopic dissection, motor evoked potentials and NIMS monitoring. SURGEON: Agustin Clayton M.D. FIELD [employer]OP FARM WORKER: NOELLE Carmichael; assisted with the surgery. She assisted with exposure, the 2-level discectomy and fusion and closure. OPERATIVE INDICATIONS: The patient is a pleasant 76-year-old who struggled with severe neck and left arm pain for a considerable period and failed all manner of conservative measures. She had narrowing at C4-5 and C5-6 and after considerable discussion, I recommended an anterior cervical microdiscectomy and fusion at those levels. She understood the risks of surgery. She understood the expected postoperative course. I discussed with her the risks of the operation in great detail including the possible injury to soft tissue structures in the neck and sequelae of injury to each. I discussed that there are no guarantees with any type of surgery, but my hope and expectation was for her to make significant improvement and excellent recovery. She understood the rationale for surgery. She understood the technique and the risks and she wished to go ahead. DESCRIPTION OF PROCEDURE: Following general endotracheal anesthesia, the patient was positioned supine on the operating room table with the neck in a neutral position. The anterior cervical region was then prepped and draped in standard fashion. SUE hose and AV impulse boots were applied for DVT prophylaxis. The microscope was draped, fluoroscopy was draped and brought into the field. Monitoring was established. Vancomycin 1 gram was given prior to surgery. Using fluoroscopic guidance, incision was made from the midline around to the skin crease, dissected down through skin and subcutaneous tissue. I dissected around the medial aspect of the sternocleidomastoid and carotid artery sheath down the anterior cervical vertebral bodies. I exposed the C4-5, C5-6 and placed anterior disc retractor at C5-6 wedged in the longus colli muscle. I placed 14 mm pins in C5 and C6. I brought in the microscope. I made an incision in the anterior annulus and I gently distracted the disc space. I drilled down through spurring and performed a generous discectomy posteriorly. I trimmed the posterior ligament and annulus exposing the dura and worked widely bilaterally to assure that the region was open. I then scraped cartilaginous endplate and prepared a fusion bed. I placed a 5 mm cadaveric bone graft into position. After I obtained perfect hemostasis, I then moved superiorly to C4-5 in a similar fashion, incised the anterior annulus again through the microscope. I performed a discectomy, drilled away the spurring, scraped the cartilaginous endplate, worked posteriorly and opened the annulus and ligament widely bilaterally and I assured myself that the region was very well decompressed. I prepared the endplates for fusion. I placed a 7 mm interbody fusion graft at this location and I onlaid a 37 mm plate and placed six 14 mm screws. The middle left screw was a rescue screw to obtain better purchase at that level. I locked all of the screws in position. I irrigated copiously. I removed the retractors, valsalvaed the patient, checked for hemostasis, which was excellent. I did take films, which showed excellent position of the construct. I irrigated copiously. I closed the wound in layers with absorbable suture and the skin was closed with 4-0 subcuticular stitch. I felt the surgery went very well. JENNIFER/RAJIV DR: Marvin TISathya: [phone] NOAH
[2021-05-05] MEDS ORDERED: VANCOMYCIN 1 GM in IV NORMAL SALINE 250ML 250 ML IV ONE (02:00)
[2021-05-05 03:00] VITALS: BP 134/66
[2021-05-05] MEDS: HYDROcodone/APAP 7.5/325MG 1 TAB TABLET PO PRN ×3 (03:34→13:31)
[2021-05-05 06:30] VITALS: BP 134/79
[2021-05-05] MEDS: POTASSIUM CL 20MEQ D5-0.45NACL 1,000 ML IV SCH (07:20)
[2021-05-05] MEDS: ACYCLOVIR 200 MG CAPSULE. PO SCH (07:41)
[2021-05-05] MEDS: GABAPENTIN 300 MG CAPSULE. PO SCH ×2 (08:57→13:57)
[2021-05-05] MEDS: METHOCARBAMOL 750 MG TABLET PO SCH ×2 (08:57→13:57)
[2021-05-05] MEDS: DOCUSATE SODIUM 100 MG CAPSULE. PO SCH (08:57)
[2021-05-05 11:00] VITALS: BP 128/72
[2021-05-05 12:32] VITALS: BP 128/72
--- NOTE | 2021-05-05 13:23 | DISCH ---
DISCHARGE INSTRUCTIONS Condition on Discharge Condition on Discharge: Stable Activity After Discharge Activity Instructions for Disc: Activity as tolerated, Avoid exertion, Prog ressive ambulation Other activity instructions: no driving for a week, soft collar for comfort Bathing Instructions: No Tub Bath until see Lifting Instructions after Dis: No heavy lifting, No pulling or pushing, Do not lift >10 pounds Exercise Instruction after Dis: Progress as tolerated Driving Instructions after Dis: Do not drive Diet after Discharge Diet after Discharge: GI Soft, Regular Additional Diet Restrictions: resume home diet Liquid Texture: Thin Liquid Wound Incision Care Wound/Incision Care: Ice to area for comfort, Change dressing, May get incision wet Other wound/incision instructi: May shower 48 hours post op. Remove dressing. Replace if desired. Checks after Discharge Checks after discharge: Check your Temp as needed Contacting the after DC Call your doctor for: Concerns you may have Follow-Up Follow Up With: Dr Infante's nurse in two weeks Treatment/Equipment after DC Adaptive Equipment Issued: None IRINEO INFANTE MD May 05, 2021 13:23
[2021-05-05] MEDS ORDERED: METH-562 PO (13:24)
--- NOTE | 2021-05-05 16:29 | NUR ---
Patient left with her around 1615. Dressing to anterior neck CDI with soft collar in place. SUE hose on. Discharge education gone over by this nurse, PT, and JENIFER Gongora prior to dismissal. IV discontinued without complications. Precautions addressed. NO concerns noted at discharge.
--- NOTE | 2021-05-09 18:06 | PATHOLOGY ---
[facility] Accession Number: [id number] . 01 Material submitted: . vertebral column - CERVICAL DISC . 01 Clinical history: . 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 02 Diagnosis: Segments of fibrocartilaginous tissue and bone, cervical disc: - Degenerative changes of fibrocartilaginous tissue. LBQ 05/09/2021 1544 Local . 02 Comment: There is no evidence of an acute inflammatory process or malignancy. (JPM/db; 05/09/2021) . 02 Electronically signed: . Richard Hernandez MD, Pathologist NPI- [id number] . 01 Gross description: . The specimen is received in formalin, labeled "Jennifer, Nevaeh, cervical disc". Received are multiple segments of pale chakraborty fibrous tissue admixed with fragments of gritty bone measuring 2.8 x 1.5 x 0.1 cm in aggregate dimensions. The specimen is submitted client relations representative in cassette A1, following decalcification using Immunocal. ([facility]; 05/06/2021) [facility] 05/06/2021 1202 Local . 02 Pathologist provided ICD-10: M43.12, M54.10 . 02 CPT . 661039, [id number] Specimen Comment: A courtesy copy of this report has been sent to [phone], [phone] Specimen Comment: [id number] Specimen Comment: Report sent to / DR MANDUJANO Specimen Comment: A duplicate report has been generated due to demographic updates. Performed at: [facility] [address], [place], [place] [id number] MD Grayson Banerjee MD Phone: [phone] Performed at: [address] [id number] MD Richard Hernandez MD Phone: [phone]
[2021-05-11] MEDS ORDERED: NON FORMULARY ITEM (Alendronate Sodium 1 TAB) PO SCH (09:00)
--- NOTE | 2021-05-12 13:27 | DS ---
DATE OF DISCHARGE: 05/05/2021 DISCHARGE DIAGNOSIS: Cervical radiculopathy. OPERATION PERFORMED: Anterior cervical microdiscectomy and fusion, C4-C5, C5-C6. HISTORY OF PRESENT ILLNESS: The patient is a pleasant 76-year-old who struggled with severe neck and left arm pain for a considerable period of time and failed conservative measures. She had narrowing at C4-C5 and C5-C6 and after a considerable discussion, I recommended an ACDF at C5-C6. She understood the surgery including the technique and the risk. She understood the expected postoperative course. She understood the risk of the operation including a possible injury to soft tissue structures of the neck and sequelae of injury to each. She wished to proceed. HOSPITAL COURSE: She was admitted to the floor postoperatively, where she did well. She was up ambulating in the room and in the halls. Physical therapy was initiated and instruction was given to her regarding her activities. Her pain is well controlled and she is in good condition to discharge home. DISCHARGE MEDICATIONS: She will resume her medications per the MRAD. DISCHARGE INSTRUCTIONS: She was instructed regarding incision care, activity restrictions and expectations for the next several weeks. She will follow up in our office in 2 weeks. She understands to call with any questions or concerns. JACQUELINE DR: Judah TID: [id number] NOAH
== END 2021-05-05 16:30 | disposition home or self-care (01) | DRG 473 ==
LOC: OPSVCIP 10:38 → 4 SOUTHEST 17:20
PROVIDERS: ADMIT Neurological Surgery; ATTEND Neurological Surgery
PROC: 0RB30ZZ Excision of Cervical Vertebral Disc, Open Approach (ICD-10-PCS; 2021-05-04)
PROC: 4A11X4G Monitoring of Peripheral Nervous Electrical Activity, Intraoperative, External Approach (ICD-10-PCS; 2021-05-04)
PROC: 0RG20A0 Fusion of 2 or more Cervical Vertebral Joints with Interbody Fusion Device, Anterior Approach, Anterior Column, Open Approach (ICD-10-PCS; principal; 2021-05-04 12:00)
DX: M48.02 Spinal stenosis, cervical region (principal); M54.12 Radiculopathy, cervical region; Z20.822 Contact with and (suspected) exposure to COVID-19; Z82.0 Family history of epilepsy and other diseases of the nervous system; Z83.3 Family history of diabetes mellitus; Z80.9 Family history of malignant neoplasm, unspecified; Z81.8 Family history of other mental and behavioral disorders; Z88.5 Allergy status to narcotic agent; Z88.0 Allergy status to penicillin; Z88.8 Allergy status to other drugs, medicaments and biological substances; Z87.891 Personal history of nicotine dependence
CPT/HCPCS: 76000; 88304; 88311; A4222; A4223; A4364; A4930; A6254; A6258; C1713; J0780; J1100; J2270; J2370; J2405; J2704; J2710; J3010; J3370; J3490; J7030; J7050; J7120; G0378